=== PATIENT | male | born 1935 | race Caucasian/White ===

== ENCOUNTER 2018-06-14 15:53 | Inpatient (IN) | payer MEDICARE, BC ==
[~2018-06-14] VITALS: Ht 170.2 cm; Wt 66.2 kg
--- NOTE | 2018-06-14 16:01 | NUR ---
PT BIBPA FROM [facility]; ELEVATED TEMP OF 100.1 @1400, TYLENOL GIVEN, PT IS AAOX0, NOT IN RESPIRATORY DISTRESS, V/S STABLE, KEPT RESTED AND COMFORTABLE. WILL CONTINUE TO MONITOR.
--- NOTE | 2018-06-14 16:10 | NUR ---
LABS DRAWNED AND SENT TO LAB.
--- NOTE | 2018-06-14 16:22 | NUR ---
SEEN AND EXAMINED BY DR. ESPARZA.
[2018-06-14] MEDS ORDERED: ACETAMINOPHEN 650 MG/SUPP.RECT RC ONE (16:30)
[2018-06-14] MEDS ORDERED: ALBUTEROL FS 2.5 MG/3 ML VIAL.NEB CONTNEB ONE (16:30)
[2018-06-14] MEDS ORDERED: CEFEPIME 1 GM in IV D5W 50 ML IV ONE (16:30)
[2018-06-14] MEDS ORDERED: IV NS 0.9% 1,000 ML BAG IV ONE (16:30)
--- NOTE | 2018-06-14 16:31 | NUR ---
RADIOLOGY AT BEDSIDE FOR XRAY.
[2018-06-14 16:36] LABS: BASOPHILS # (AUTO) 0.1 /CMM (0.0-0.2); BASOPHILS % (AUTO) 0.5 % (0.0-2.0); EOSINOPHILS % (AUTO) 0.4 % (0.0-6.0); HEMATOCRIT 33 % (39-51); HEMOGLOBIN 10.8 g/dL (13.5-17.5); LYMPHOCYTES # (AUTO) 1.2 /CMM (0.8-4.8); LYMPHOCYTES % (AUTO) 10.3 % (20.0-44.0); MEAN CORPUSCULAR HGB CONC 33 g/dl (31.0-36.0); MEAN CORPUSCULAR VOLUME 102 fL (80-96); MONOCYTES # (AUTO) 0.5 /CMM (0.1-1.30); MONOCYTES % (AUTO) 4.5 % (2.0-12.0); NEUTROPHILS # (AUTO) 10.1 /CMM (1.8-8.9); NEUTROPHILS % (AUTO) 84.3 % (43.0-81.0); PLATELET COUNT (AUTO) 193 /CMM (150-450); RED BLOOD CELL COUNT(AUTO) 3.26 MIL/uL (4.5-6.0)
[2018-06-14] MEDS ORDERED: ALBUTEROL FS 2.5 MG/3 ML VIAL.NEB ONE (16:38)
--- NOTE | 2018-06-14 16:45 | NUR ---
RT AT BEDSIDE FOR BREATHING TREATMENT AND SUCTIONING.
[2018-06-14 17:00] LABS: CALCIUM, SERUM 9.3 mg/dL (8.5-10.1); CARBON DIOXIDE 30 mmol/L (21-32); CHLORIDE 98 mmol/L (98-107); GLUCOSE 120 mg/dL (74-106); POTASSIUM 4.1 mmol/L (3.5-5.1); SODIUM SERUM 137 mmol/L (136-145); UREA NITROGEN, BLOOD 59 mg/dL (7-18)
--- NOTE | 2018-06-14 17:02 | NUR ---
URINE SPECIMEN COLLECTED AND SENT TO LAB.
[2018-06-14 17:05] LABS: APPEARANCE,URINE Slightly Cloudy (CLEAR); BILIRUBIN,URINE Negative (NEGATIVE); BLOOD, URINE Large Ery/uL (NEGATIVE); COLOR,URINE Yellow (YELLOW); KETONES,URINE Trace (NEGATIVE); LEUKOCYTE ESTERASE ,URINE Small (NEGATIVE); NITRITE, URINE Negative (NEGATIVE); PROTEIN,URINE 30 mg/dl (NEGATIVE); UGLUCOSE Negative (NEGATIVE); UROBILINOGEN,URINE 0.2 EU/dL (0.2)
--- NOTE | 2018-06-14 17:07 | NUR ---
PAGED CUSTOMER RELATIONS COORDINATOR DR. DINERO FOR PANEL. AWAITING TO CALL BACK
[2018-06-14 17:12] LABS: ALANINE AMINOTRANSFERASE 14 U/L (12-78); ALBUMIN 2.7 g/dL (3.4-5.0); ALKALINE PHOSPHATASE 105 U/L (46-116); ASPARTATE AMINOTRANSFERASE 37 U/L (15-37); B-TYPE NATRIURETIC PEPTIDE 4872 PG/ML (0-125); BILIRUBIN,DIRECT 0.1 mg/dL (0.0-0.2); BILIRUBIN,TOTAL 0.3 mg/dL (0.2-1.0); TOTAL PROTEIN, SERUM 6.2 g/dL (6.4-8.2)
[2018-06-14 17:22] LABS: BACTERIA,URINE 1+ /HPF (None Seen); RBC,URINE TOO NUMEROUS TO COUN /HPF (0-2); SQUAMOUS EPITHELIAL CELL,UR Few /HPF (None Seen)
[2018-06-14] MEDS ORDERED: BISA10SU61 RC (17:51)
[2018-06-14] MEDS ORDERED: CRAN3875 GT (17:51)
[2018-06-14] MEDS ORDERED: ASPI-1169 GT (17:51)
[2018-06-14] MEDS ORDERED: CLOP75TA15 GT (17:51)
[2018-06-14] MEDS ORDERED: ASCO500T9 GT (17:51)
[2018-06-14] MEDS ORDERED: VITA400C68 GT (17:51)
[2018-06-14] MEDS ORDERED: IPRA3AMP23 IH (17:51)
[2018-06-14] MEDS ORDERED: ACET325T53 GT ×2 (17:51)
[2018-06-14] MEDS ORDERED: MIDO10TA GT (17:51)
[2018-06-14] MEDS ORDERED: MODA100T14 GT (17:51)
[2018-06-14] MEDS ORDERED: VITA1CAP GT (17:51)
[2018-06-14] MEDS ORDERED: LEVO50TA8 GT (17:51)
[2018-06-14] MEDS ORDERED: FOLI0.8T GT (17:51)
[2018-06-14] MEDS ORDERED: HEPA50008 SQ (17:51)
[2018-06-14] MEDS ORDERED: CRAN425C6 GT (17:51)
[2018-06-14] MEDS ORDERED: ATOR80TA GT (17:51)
[2018-06-14] MEDS ORDERED: NITR0.4T48 SL (17:51)
[2018-06-14] MEDS ORDERED: LACT-96 GT (17:51)
[2018-06-14] MEDS ORDERED: ZINC220T GT (17:51)
[2018-06-14] MEDS ORDERED: AMIN30LI27 GT (17:51)
[2018-06-14] MEDS ORDERED: FERR325T23 GT (17:51)
[2018-06-14] MEDS ORDERED: MAGN400O6 GT (17:51)
[2018-06-14] MEDS ORDERED: CARB-93 GT (17:51)
[2018-06-14] MEDS ORDERED: LANS30CA54 GT (17:51)
[2018-06-14] MEDS ORDERED: ARGI1POW13 GT (17:51)
[2018-06-14] MEDS ORDERED: POLY17PO4 GT (17:51)
[2018-06-14] MEDS ORDERED: ONDA4TAB5 GT (17:51)
[2018-06-14] MEDS ORDERED: LACT1CAP7 GT (17:51)
[2018-06-14] MEDS ORDERED: GUAI5SYR GT (17:51)
[2018-06-14] MEDS ORDERED: MULT-213 GT (17:51)
[2018-06-14] MEDS ORDERED: BUME1TAB4 GT (17:51)
[2018-06-14] MEDS ORDERED: VITA400C19 GT (17:52)
--- NOTE | 2018-06-14 18:00 | NUR ---
302-1 TELE; ADMITTING DX SOB
--- NOTE | 2018-06-14 18:23 | NUR ---
REPORT GIVEN TO JACLYN BLOCK FOR PRINCE.
[2018-06-14 19:00] VITALS: BP 116/63
--- NOTE | 2018-06-14 19:15 | NUR ---
BAND SCROLL SAW OPERATORTERMITE TREATER HELPER NOTES RECEIVED REPORT FROM PRANAV,PATIENT CAME AT AROUND 1855 VIA GURNEY VIA ACLS PROTOCOL FROM ER,ACCOMPANIED BY SON.PATIENT CAME FROM [facility],A/O X2,APPEARS SLEEPY,OPEN EYES TO NAME,WITH KNOWN HX OF DEMENTIA,HTN,PARKINSONS,HYPOTHYROIDISM..C/O INCREASE TEMPERATURE 100.1 IN THE FACILITY.WITH MCNAMARA CATH IN PLACE DRAINING YELLOWISH OUTPUT.WITH SALINE LOCK LEFT WIRST G18 INTACT AND PATENT.NEW SALINE LOCK PLACE ON RIGHT FOREARM PER PHARMACY REQUEST FOR MEDS.NOTED SACRAL REDNESS,OPEN WOUND ON LEFT FOOT 1.5X1.4 CM,RIGHT LOWER LEG 2X1.5 CM.RIGHT FOOT 1.5X1CM,PHOT TAKEN ON CHART.
[2018-06-14 20:00] VITALS: BP 116/63
[2018-06-14] MEDS ORDERED: IPRATROPIUM NEB FS 0.5 MG/2.5 ML AMPUL.NEB NEB PRN ×2 (20:30→21:30)
[2018-06-14] MEDS ORDERED: ALBUTEROL FS 2.5 MG/3 ML VIAL.NEB NEB PRN (20:30)
[2018-06-14] MEDS ORDERED: FEE PK DOSING 1 MIN EA MC ONE (20:39)
[2018-06-14] MEDS ORDERED: [UNRECOGNIZED DRUG - OTHER] GT SCH (21:00)
[2018-06-14] MEDS ORDERED: BISACODYL SUPP (10 MG) 10 MG/SUPP.RECT SUPP.RECT RC PRN (21:00)
[2018-06-14] MEDS ORDERED: NITROGLYCERIN 0.4 MG/TAB BOTTLE SL PRN (21:00)
[2018-06-14] MEDS ORDERED: JEVITY 1.2 CAL 1,000 ML BOTTLE GT PRN (21:00)
[2018-06-14] MEDS ORDERED: LACTOSE REDUCED FOOD GT SCH (21:00)
[2018-06-14] MEDS: FUROSEMIDE 40 MG/4 ML VIAL IV SCH (21:00)
[2018-06-14] MEDS ORDERED: GUAIFENESIN/D-METHORPHAN HB 5 ML UDC GT PRN (21:00)
[2018-06-14] MEDS ORDERED: PIPERACILLIN /TAZOBACTAM 3.375 G in IV D5W 100 ML IV SCH (21:00)
[2018-06-14] MEDS ORDERED: ACETAMINOPHEN 650 MG/20.3 ML UDC GT PRN (21:00)
[2018-06-14] MEDS ORDERED: FIBER GT SCH (21:00)
[2018-06-14] MEDS ORDERED: MAGNESIUM HYDROXIDE 30 ML UDC GT PRN (21:00)
--- NOTE | 2018-06-14 21:00 | NUR ---
ROUTER MACHINE OPERATOR NOTES STARTED ON LASIX 40MG IV FOR CHF ORDERED.
--- NOTE | 2018-06-14 21:00 | NUR ---
CRM ADMINISTRATOR NOTES STARTED ON VANCOMYCIN 1GM IV FOR SEPSIS ORDERED.
[2018-06-14] MEDS: CARBIDOPA/LEVODOPA 25/100 MG 1 UDTAB GT SCH (21:07)
[2018-06-14] MEDS: VANCOMYCIN 1 GM in IV D5W 250 ML IV SCH (21:17)
[2018-06-14] MEDS ORDERED: ONDANSETRON 4 MG TAB.RAPDIS GT PRN (21:30)
[2018-06-14] MEDS: MIDODRINE HCL (5MG) 5 MG TABLET GT SCH (21:38)
[2018-06-14] MEDS ORDERED: PIPERACILLIN /TAZOBACTAM 3.375 G in IV D5W 50 ML IV ONE (22:00)
[2018-06-14] MEDS ORDERED: ATORVASTATIN 40 MG TABLET GT SCH (22:00)
--- NOTE | 2018-06-14 22:00 | NUR ---
COMPLETION SUPERVISOR NOTES STARTED ON ZOSYN 3.375GM IVPB ORDERED.
--- NOTE | 2018-06-14 22:00 | NUR ---
MEDICAL SURGICAL TECH NOTES SR-80 ON TELE MONITOR.DUE MEDS GIVEN VIA GT.WILL START ON JEVITY FEEDING ORDERED.
[2018-06-15] VITALS: BP 110/52
[2018-06-15] MEDS: IPRATROPIUM NEB FS 0.5 MG/2.5 ML AMPUL.NEB NEB SCH ×7 (00:12→23:17)
[2018-06-15] MEDS ORDERED: ALBUTEROL FS 2.5 MG/3 ML VIAL.NEB NEB PRN (01:30)
--- NOTE | 2018-06-15 02:00 | NUR ---
HATCHERY HELPER NOTES STARTED ON JEVITY FEEDING/GT AT 65ML/HR RATE X 20 HOURS(1300ML),ON 0200,OFF 2200.
[2018-06-15] MEDS: ALBUTEROL FS 2.5 MG/3 ML VIAL.NEB NEB SCH ×6 (04:21→23:17)
[2018-06-15] MEDS: PIPERACILLIN /TAZOBACTAM 3.375 G in IV D5W 100 ML IV SCH ×3 (04:55→21:00)
[2018-06-15] MEDS: MIDODRINE HCL (5MG) 5 MG TABLET GT SCH ×3 (05:00→20:59)
[2018-06-15 06:23] LABS: BASOPHILS % (AUTO) 0.4 % (0.0-2.0); EOSINOPHILS % (AUTO) 0.5 % (0.0-6.0); HEMATOCRIT 32 % (39-51); HEMOGLOBIN 10.7 g/dL (13.5-17.5); LYMPHOCYTES # (AUTO) 0.4 /CMM (0.8-4.8); LYMPHOCYTES % (AUTO) 3.8 % (20.0-44.0); MEAN CORPUSCULAR HGB CONC 33 g/dl (31.0-36.0); MEAN CORPUSCULAR VOLUME 102 fL (80-96); MONOCYTES # (AUTO) 0.1 /CMM (0.1-1.30); MONOCYTES % (AUTO) 1.2 % (2.0-12.0); NEUTROPHILS # (AUTO) 10.9 /CMM (1.8-8.9); NEUTROPHILS % (AUTO) 94.1 % (43.0-81.0); PLATELET COUNT (AUTO) 177 /CMM (150-450); RED BLOOD CELL COUNT(AUTO) 3.16 MIL/uL (4.5-6.0); WHITE BLOOD COUNT (AUTO) 11.6 K/uL (4.3-11.0)
[2018-06-15 06:43] LABS: ALANINE AMINOTRANSFERASE 15 U/L (12-78); ALBUMIN 2.4 g/dL (3.4-5.0); ALKALINE PHOSPHATASE 92 U/L (46-116); ASPARTATE AMINOTRANSFERASE 36 U/L (15-37); BILIRUBIN,TOTAL 0.4 mg/dL (0.2-1.0); CALCIUM, SERUM 8.7 mg/dL (8.5-10.1); CARBON DIOXIDE 30 mmol/L (21-32); CHLORIDE 99 mmol/L (98-107); CREATININE 0.9 mg/dL (0.6-1.3); GLUCOSE 133 mg/dL (74-106); MAGNESIUM 2.4 mg/dL (1.8-2.4); PHOSPHORUS 4.9 mg/dL (2.5-4.9); POTASSIUM 3.7 mmol/L (3.5-5.1); SODIUM SERUM 138 mmol/L (136-145); TOTAL PROTEIN, SERUM 5.7 g/dL (6.4-8.2); UREA NITROGEN, BLOOD 47 mg/dL (7-18)
--- NOTE | 2018-06-15 06:47 | NUR ---
MANAGER RAIL NOTES ON BED MORE AROUSABLE TO VERBAL STIMULI,GT FEEDING TOLERATED WELL,NO N/V D NOTED,NO RESIDUAL NOTED.REPOSITION PER PROTOCOL.IV ABX TOLERATED WELL.IN NO ACUTE DISTRESS.WILL ENDORSE TO DAY NURSE FOR PRINCE.
--- NOTE | 2018-06-15 07:15 | NUR ---
FURNACE MASON OPENING NOTES RECEIVED PATIENT AWAKE IN BED IN NO ACUTE SIGNS OF DISTRESS. HOB ELEVATED. A/O X1. APPEARS COMFORTABLE WITH NO SIGNS OF GRIMACING OR MOANING NOTED AT THIS TIME. ON 02 VIA N/C @ 3LPM, TOLERATING WELL WITH NO SOB NOTED. TELEMONITORING SHOWS SR WITH HR ON THE 80'S. PT WITH PIV'S ON RFA #20 AND LEFT WRIST #18, IV ABT ZOSYN CURRENTLY INFUSING @25ML/HR. G-TUBE IN PLACE WITH FEEDING OF JEVITY 1.2 @ 65ML/HR IN PROGRESS, TOLERATING WELL. ASPIRATION PRECAUTIONS MAINTAINED. PT WITH MCNAMARA CATH IN PLACE, DRAINING CLEAR YELLOW URINE TO BEDSIDE URINARY BAG. SAFETY MEASURES IN PLACE. BED IN LOWEST LOCKED POSITION WITH SR UP X3. CALL LIGHT IN REACH. WILL CONTINUE TO MONITOR ACCORDINGLY.
[2018-06-15 08:00] VITALS: BP 101/53
[2018-06-15] MEDS: ZINC SULFATE 220 MG CAPSULE GT SCH (08:24)
[2018-06-15] MEDS: FERROUS SULFATE (325 MG) 325 MG/TAB TABLET GT SCH (08:24)
[2018-06-15] MEDS: CLOPIDOGREL BISULFATE 75 MG TABLET GT SCH (08:24)
[2018-06-15] MEDS: POLYETHYLENE GLYCOL 3350 17 GM POWD.PACK GT SCH (08:24)
[2018-06-15] MEDS: PANTOPRAZOLE 40 MG/PACK PACK GT SCH (08:24)
[2018-06-15] MEDS: FOLIC ACID 1 MG TABLET GT SCH (08:24)
[2018-06-15] MEDS: FUROSEMIDE 40 MG/4 ML VIAL IV SCH (08:25)
[2018-06-15] MEDS: ASPIRIN 81 MG TAB.CHEW GT SCH (08:25)
[2018-06-15] MEDS: CARBIDOPA/LEVODOPA 25/100 MG 1 UDTAB GT SCH ×4 (08:25→20:59)
[2018-06-15] MEDS: VITAMIN B COMP W-C 1 TAB TABLET GT SCH (08:25)
[2018-06-15] MEDS: ASCORBIC ACID 500 MG TABLET GT SCH (08:25)
[2018-06-15] MEDS: LEVOTHYROXINE SODIUM 50 MCG TABLET GT SCH (08:25)
[2018-06-15] MEDS: LACTOBACILLUS RHAMNOSUS GG 1 EACH CAP.SPRINK GT SCH (08:25)
[2018-06-15] MEDS: MODAFINIL 100 MG TABLET GT SCH (08:25)
[2018-06-15] MEDS: BUMETANIDE (1 MG) 1 MG TABLET GT SCH ×2 (08:25→17:48)
[2018-06-15] MEDS: MULTIVIT W/MINERALS 1 TAB TABLET GT SCH (08:25)
[2018-06-15] MEDS: HEPARIN SODIUM, PORCINE 5000 UNITS/1 ML VIAL SQ SCH ×2 (08:28→17:51)
[2018-06-15] MEDS: ACETAMINOPHEN 650 MG/20.3 ML UDC GT SCH (08:36)
[2018-06-15] MEDS: PROSOURCE / PROSTAT (PYXIS) 30 ML UDC GT SCH (08:36)
[2018-06-15] MEDS: VANCOMYCIN 1 GM in IV D5W 250 ML IV SCH ×2 (08:37→21:00)
[2018-06-15] MEDS: VITAMIN E 400 UNIT CAPSULE GT SCH (09:00)
[2018-06-15] MEDS: IV NS 0.9% 1,000 ML IV PRN (10:29)
[2018-06-15 10:48] LABS: THYROID STIMULATING HORMONE 6.047 uIU/mL (0.358-3.74)
[2018-06-15] MEDS: Z GUARD REMEDY 2 OZ OINT TP SCH ×2 (15:00→21:01)
[2018-06-15 16:00] VITALS: BP 115/62
[2018-06-15] MEDS: VITAMINS A AND D 56.7 GM TUBE TP SCH (16:23)
--- NOTE | 2018-06-15 19:26 | NUR ---
MS RN CLOSING NOTES PATIENT COMFORTABLY LYING AT MODERATE HIGH BACKREST IN BED. A/O X1. PT ASLEEP MOST OF TIME DURING THE DAY WITH NO ACUTE DISTRESS NOTED. ON 02 VIA N/C @ 3LPM, TOLERATING WELL WITH NO SOB NOTED. PT WITH PIV'S ON RFA #20 AND LEFT WRIST #18, IVF OF NS @100ML/HR INFUSING WELL. G-TUBE IN PLACE WITH FEEDING OF JEVITY 1.2 @ 65ML/HR IN PROGRESS, TOLERATING WELL. ASPIRATION PRECAUTIONS MAINTAINED. PT WITH MCNAMARA CATH IN PLACE, DRAINING CLEAR YELLOW URINE TO BEDSIDE URINARY BAG., MCNAMARA CARE DONE. PT KEPT CLEAN AND DRY. TURNED AND REPOSITIONED Q 2HRS AND PRN. ALL NEEDS AND CARE PROVIDED WELL. SAFETY MEASURES IN PLACE. BED IN LOWEST LOCKED POSITION WITH SR UP X3. CALL LIGHT IN REACH. ENDORSED TO RELATIONS MGR NURSE FOR PRINCE.
--- NOTE | 2018-06-15 19:30 | NUR ---
MS RN NOTES RECEIVED LAYING COMFORTABLY ON BED,BREATHING NON LABORED.O2 IN USED AT 2L/NC TO KEEP O2 SAT ABOVE 90%.WITH IVF NS AT 100ML/HR RATE INFUSING VIA IV PUMP ON RIGHT FOREARM,SITE PATENT.WITH SECOND SALINE LOCK ON LEFT WRIST #18.JEVITY FEEDING IN PROGRESS VIA GT,TOLERATED WELL,NO RESIDUAL VOLUME NOTED.HOB ELEVATED FOR ASPIRATION PRECAUTION.ON KCI MATTRESS FOR SKIN MANAGEMENT.REPOSITION PER PROTOCOL,CALL LIGHT IN REACH,WILL CONTINUE TO MONITOR STATUS.
[2018-06-15 20:00] VITALS: BP 99/57
--- NOTE | 2018-06-15 20:30 | NUR ---
MS RN NOTES SON GUS BESIDE
--- NOTE | 2018-06-15 21:00 | NUR ---
MS RN NOTES DUE IV ABX HUNG,INFUSING AT THIS TIME.REPOSITION PER PROTOCOL
[2018-06-15] MEDS: JEVITY 1.2 CAL 1,000 ML BOTTLE GT PRN (21:05)
[2018-06-16] MEDS: IPRATROPIUM NEB FS 0.5 MG/2.5 ML AMPUL.NEB NEB SCH ×6 (03:28→23:28)
[2018-06-16] MEDS: ALBUTEROL FS 2.5 MG/3 ML VIAL.NEB NEB SCH ×6 (03:29→23:27)
[2018-06-16] MEDS: PIPERACILLIN /TAZOBACTAM 3.375 G in IV D5W 100 ML IV SCH ×3 (05:00→20:31)
[2018-06-16] MEDS: IV NS 0.9% 1,000 ML IV PRN (05:00)
[2018-06-16] MEDS: MIDODRINE HCL (5MG) 5 MG TABLET GT SCH ×3 (05:02→21:08)
--- NOTE | 2018-06-16 06:40 | NUR ---
MS RN NOTES ON BED A/O X 1,OPEN EYES TO NAME,GT FEEDING TOLERATED WELL,NO N/V/D NOTED,MCNAMARA CATH DRAINED CHERYL COLORED URINE.MEPILEX TO BILATERAL FOOT CHANGED.REPOSITIONED PER PROTOCOL,IN NO ACUTE DISTRESS.WILL ENDORSE TO DAY NURSE FOR PRINCE.
--- NOTE | 2018-06-16 07:15 | NUR ---
MS RN OPENING NOTES RECEIVED PATIENT ASLEEP IN BED IN NO ACUTE SIGNS OF DISTRESS. HOB ELEVATED. A/O X1. APPEARS COMFORTABLE WITH NO SIGNS OF GRIMACING OR MOANING NOTED AT THIS TIME. ON 02 VIA N/C @ 2LPM, TOLERATING WELL WITH NO SOB NOTED. PT WITH PIV'S ON RFA #20 AND LEFT WRIST #18, IV ABT ZOSYN CURRENTLY INFUSING @25ML/HR. G-TUBE IN PLACE WITH FEEDING OF JEVITY 1.2 @ 65ML/HR CONTINUOUSLY, NO GASTRIC RESIDUAL NOTED, TOLERATING WELL. ASPIRATION PRECAUTIONS MAINTAINED. PT WITH MCNAMARA CATH IN PLACE, DRAINING CLEAR YELLOW URINE TO BEDSIDE URINARY BAG. SAFETY MEASURES IN PLACE. BED IN LOWEST LOCKED POSITION WITH SR UP X3. CALL LIGHT IN REACH. WILL CONTINUE TO MONITOR ACCORDINGLY.
--- NOTE | 2018-06-16 07:43 | NUR ---
WOUND CARE CONSULT WOUND CARE RECEIVED CONSULT FOR LOWER EXTREMITIES WOUND. WOUND CARE WILL DEFER TO PLASTIC SURGICAL TEAM WHO ARE CURRENTLY FOLLOWING THIS PATIENT. PATIENT WITH HIRA AT 11, ALL PRESSURE ULCER PREVENTION MEASURES ARE NOTED TO BE IN PLACE. WILL SEE PRN.
[2018-06-16 08:00] VITALS: BP 111/58
[2018-06-16 08:40] LABS: BASOPHILS # (AUTO) 0.1 /CMM (0.0-0.2); BASOPHILS % (AUTO) 0.9 % (0.0-2.0); EOSINOPHILS % (AUTO) 1.1 % (0.0-6.0); HEMATOCRIT 31 % (39-51); HEMOGLOBIN 10.2 g/dL (13.5-17.5); LYMPHOCYTES # (AUTO) 0.5 /CMM (0.8-4.8); LYMPHOCYTES % (AUTO) 5.5 % (20.0-44.0); MEAN CORPUSCULAR HGB CONC 33 g/dl (31.0-36.0); MEAN CORPUSCULAR VOLUME 103 fL (80-96); MONOCYTES # (AUTO) 0.2 /CMM (0.1-1.30); MONOCYTES % (AUTO) 2.1 % (2.0-12.0); NEUTROPHILS # (AUTO) 7.8 /CMM (1.8-8.9); NEUTROPHILS % (AUTO) 90.4 % (43.0-81.0); PLATELET COUNT (AUTO) 156 /CMM (150-450); RED BLOOD CELL COUNT(AUTO) 3.02 MIL/uL (4.5-6.0); WHITE BLOOD COUNT (AUTO) 8.6 K/uL (4.3-11.0)
[2018-06-16 08:49] LABS: ALANINE AMINOTRANSFERASE 29 U/L (12-78); ALBUMIN 2.2 g/dL (3.4-5.0); ALKALINE PHOSPHATASE 100 U/L (46-116); ASPARTATE AMINOTRANSFERASE 39 U/L (15-37); BILIRUBIN,TOTAL 0.3 mg/dL (0.2-1.0); CALCIUM, SERUM 8.6 mg/dL (8.5-10.1); CARBON DIOXIDE 33 mmol/L (21-32); CHLORIDE 100 mmol/L (98-107); CREATININE 0.9 mg/dL (0.6-1.3); GLUCOSE 142 mg/dL (74-106); MAGNESIUM 2.3 mg/dL (1.8-2.4); PHOSPHORUS 3.9 mg/dL (2.5-4.9); POTASSIUM 3.4 mmol/L (3.5-5.1); SODIUM SERUM 140 mmol/L (136-145); TOTAL PROTEIN, SERUM 5.3 g/dL (6.4-8.2); UREA NITROGEN, BLOOD 38 mg/dL (7-18)
[2018-06-16] MEDS: VANCOMYCIN 1 GM in IV D5W 250 ML IV SCH (09:00)
[2018-06-16] MEDS: FOLIC ACID 1 MG TABLET GT SCH (09:52)
[2018-06-16] MEDS: CLOPIDOGREL BISULFATE 75 MG TABLET GT SCH (09:52)
[2018-06-16] MEDS: VITAMIN E 400 UNIT CAPSULE GT SCH (09:52)
[2018-06-16] MEDS: ASCORBIC ACID 500 MG TABLET GT SCH (09:53)
[2018-06-16] MEDS: MODAFINIL 100 MG TABLET GT SCH (09:53)
[2018-06-16] MEDS: VITAMIN B COMP W-C 1 TAB TABLET GT SCH (09:53)
[2018-06-16] MEDS: LACTOBACILLUS RHAMNOSUS GG 1 EACH CAP.SPRINK GT SCH (09:53)
[2018-06-16] MEDS: ASPIRIN 81 MG TAB.CHEW GT SCH (09:53)
[2018-06-16] MEDS: CARBIDOPA/LEVODOPA 25/100 MG 1 UDTAB GT SCH ×4 (09:53→20:27)
[2018-06-16] MEDS: MULTIVIT W/MINERALS 1 TAB TABLET GT SCH (09:53)
[2018-06-16] MEDS: BUMETANIDE (1 MG) 1 MG TABLET GT SCH ×2 (09:53→16:45)
[2018-06-16] MEDS: FERROUS SULFATE (325 MG) 325 MG/TAB TABLET GT SCH (09:54)
[2018-06-16] MEDS: ZINC SULFATE 220 MG CAPSULE GT SCH (09:54)
[2018-06-16] MEDS: PANTOPRAZOLE 40 MG/PACK PACK GT SCH (09:54)
[2018-06-16] MEDS: ACETAMINOPHEN 650 MG/20.3 ML UDC GT SCH (09:54)
[2018-06-16] MEDS: LEVOTHYROXINE SODIUM 50 MCG TABLET GT SCH (09:54)
[2018-06-16] MEDS: HEPARIN SODIUM, PORCINE 5000 UNITS/1 ML VIAL SQ SCH ×2 (09:55→16:46)
[2018-06-16] MEDS: POLYETHYLENE GLYCOL 3350 17 GM POWD.PACK GT SCH (09:55)
[2018-06-16] MEDS: Z GUARD REMEDY 2 OZ OINT TP SCH ×2 (09:55→20:34)
[2018-06-16] MEDS: VITAMINS A AND D 56.7 GM TUBE TP SCH (09:56)
[2018-06-16] MEDS: PROSOURCE / PROSTAT (PYXIS) 30 ML UDC GT SCH (09:56)
[2018-06-16] MEDS ORDERED: POTASSIUM CHLORIDE 20 MEQ POWDER PACKET GT SCH (11:30)
[2018-06-16] MEDS: JEVITY 1.2 CAL 1,000 ML BOTTLE GT PRN (12:21)
[2018-06-16 16:00] VITALS: BP 107/56
[2018-06-16] MEDS ORDERED: VANCOMYCIN 1 GM in IV D5W 250 ML IV SCH (18:00)
--- NOTE | 2018-06-16 18:34 | NUR ---
MS RN CLOSING NOTES PATIENT IN BED, IN NO SIGNS OF ANY DISTRESS. HOB ELEVATED. A/O X1. APPEARS COMFORTABLE WITH NO SIGNS OF GRIMACING OR MOANING NOTED AT THIS TIME. ON OXYGEN VIA N/C @ 2LPM; TOLERATING WELL WITH NO SOB NOTED. BREATHING TREATMENTS GIVEN BY RT ORDERED. PT WITH PIV'S ON RFA #20 AND LEFT WRIST #18, IV ABT ZOSYN GIVEN ORDERED. SKIPPED DOSE OF VANCO THIS MORNING AT 0900 D/T TO 26 VANCO THROUGH. NEW ORDER FOR VANCO DOSAGE AND THROUGH NOTED WELL. G-TUBE IN PLACE WITH FEEDING OF JEVITY 1.2 @ 65ML/HR CONTINUOUSLY, NO GASTRIC RESIDUAL NOTED, TOLERATING WELL. ASPIRATION PRECAUTIONS MAINTAINED. PT WITH MCNAMARA CATH IN PLACE, DRAINING CLEAR YELLOW URINE TO BEDSIDE URINARY BAG WITH 600ML OUTPUT. SAFETY MEASURES IN PLACE. BED IN LOWEST LOCKED POSITION WITH SR UP X3. CALL LIGHT IN REACH. WILL ENDORSE TO END MATCHER NURSE FOR PRINCE.
--- NOTE | 2018-06-16 19:15 | NUR ---
MS RN NOTE RECEIVED PT IN STABLE CONDITION: A&O X1, NO SIGNS OF SOB OR DISTRESS. PT. HAS JTUBE PATENT AND INTACT WITH ADEQUATE RESIDUAL WITH FEEDING INFUSING AND TOLERATING WELL. MCNAMARA CATH. PATENT WITH ADEQUATE URINE DRAINING. SAFETY MEASURES IN PLACE: BED LOW, LOCKED, HOB ELEVATED, UPPER RAILS UP, AND CALL LIGHT WITHIN REACH. WILL CONT. TO MONITOR.
[2018-06-16 20:00] VITALS: BP 96/51
[2018-06-17] MEDS: ALBUTEROL FS 2.5 MG/3 ML VIAL.NEB NEB SCH ×6 (03:27→23:53)
[2018-06-17] MEDS: IPRATROPIUM NEB FS 0.5 MG/2.5 ML AMPUL.NEB NEB SCH ×6 (03:27→23:53)
[2018-06-17] MEDS: PIPERACILLIN /TAZOBACTAM 3.375 G in IV D5W 100 ML IV SCH ×3 (04:25→20:29)
[2018-06-17] MEDS: MIDODRINE HCL (5MG) 5 MG TABLET GT SCH ×3 (05:10→20:29)
--- NOTE | 2018-06-17 06:37 | NUR ---
MS RN NOTE PT IN STABLE CONDITION: A&O X1, NO SIGNS OF SOB OR DISTRESS. PT. HAS JTUBE PATENT AND INTACT WITH ADEQUATE RESIDUAL WITH JEVITY 1.2 @65 ML/HR INFUSING AND TOLERATING WELL. MCNAMARA CATH. PATENT WITH OUTPUT OF 700 ML. ALL NEEDS ATTENDED TO. SAFETY MEASURES IN PLACE: BED LOW, LOCKED, HOB ELEVATED, UPPER RAILS UP, AND CALL LIGHT WITHIN REACH. WILL CONT. TO MONITOR AND ENDORSE TO NEXT SHIFT FOR PRINCE.
[2018-06-17 06:42] LABS: BASOPHILS # (AUTO) 0.1 /CMM (0.0-0.2); BASOPHILS % (AUTO) 1.2 % (0.0-2.0); EOSINOPHILS % (AUTO) 1.4 % (0.0-6.0); HEMATOCRIT 31 % (39-51); LYMPHOCYTES # (AUTO) 0.8 /CMM (0.8-4.8); MEAN CORPUSCULAR HGB CONC 33 g/dl (31.0-36.0); MEAN CORPUSCULAR VOLUME 104 fL (80-96); MONOCYTES # (AUTO) 0.3 /CMM (0.1-1.30); MONOCYTES % (AUTO) 3.1 % (2.0-12.0); NEUTROPHILS # (AUTO) 7.8 /CMM (1.8-8.9); NEUTROPHILS % (AUTO) 85.3 % (43.0-81.0); RED BLOOD CELL COUNT(AUTO) 2.93 MIL/uL (4.5-6.0); WHITE BLOOD COUNT (AUTO) 9.1 K/uL (4.3-11.0)
--- NOTE | 2018-06-17 07:15 | NUR ---
MS/RN OPENING NOTE RECEIVED THE PATIENT SLEEPING IN BED. ALERT AND ORIENTED X1, OPEN EYES TO NAME. RESPIRATION REGULAR AND UNLABORED. RECEIVING OXYGEN AT 2L/MIN VIA NASAL CANNULA. PATIENT IN NO APPARENT DISTRESS. MCNAMARA CATH DRAINING CLEAR, YELLOW COLOR URINE. JT FEEDING JEVITY 1.2 INFUSING AT 65ML/HR. HEAD OF THE BED ELEVATED. RFA G 20 PATENT AND SALINE LOCKED. LEFT WRIST G 18 PATENT AND NORMAL SALINE INFUSING AT 100ML/HR. NO S/S INFILTRATION NOTED. BED LOW AND LOCKED. SIDE RAILS UP X3. CALL LIGHT WITHIN REACH. WILL CONTINUE TO MONITOR.
[2018-06-17 07:50] LABS: PLATELET COUNT (AUTO) 172 /CMM (150-450)
[2018-06-17 08:00] VITALS: BP 111/50
[2018-06-17] MEDS ORDERED: PIPE3.379 IV (08:29)
[2018-06-17] MEDS ORDERED: BUME1TAB5 GT (08:29)
[2018-06-17] MEDS ORDERED: RXVAN XX (08:29)
[2018-06-17] MEDS ORDERED: ALBUT2 CONTNEB (08:29)
[2018-06-17] MEDS: ASCORBIC ACID 500 MG TABLET GT SCH (08:34)
[2018-06-17] MEDS: ASPIRIN 81 MG TAB.CHEW GT SCH (08:34)
[2018-06-17] MEDS: CLOPIDOGREL BISULFATE 75 MG TABLET GT SCH (08:34)
[2018-06-17] MEDS: LEVOTHYROXINE SODIUM 50 MCG TABLET GT SCH (08:34)
[2018-06-17] MEDS: MULTIVIT W/MINERALS 1 TAB TABLET GT SCH (08:34)
[2018-06-17] MEDS: POLYETHYLENE GLYCOL 3350 17 GM POWD.PACK GT SCH (08:34)
[2018-06-17] MEDS: PANTOPRAZOLE 40 MG/PACK PACK GT SCH (08:34)
[2018-06-17] MEDS: CARBIDOPA/LEVODOPA 25/100 MG 1 UDTAB GT SCH ×4 (08:34→20:27)
[2018-06-17] MEDS: VITAMIN B COMP W-C 1 TAB TABLET GT SCH (08:34)
[2018-06-17] MEDS: FERROUS SULFATE (325 MG) 325 MG/TAB TABLET GT SCH (08:34)
[2018-06-17] MEDS: LACTOBACILLUS RHAMNOSUS GG 1 EACH CAP.SPRINK GT SCH (08:35)
[2018-06-17] MEDS: VITAMIN E 400 UNIT CAPSULE GT SCH (08:35)
[2018-06-17] MEDS: FOLIC ACID 1 MG TABLET GT SCH (08:35)
[2018-06-17] MEDS: MODAFINIL 100 MG TABLET GT SCH (08:36)
[2018-06-17] MEDS: HEPARIN SODIUM, PORCINE 5000 UNITS/1 ML VIAL SQ SCH ×2 (08:36→17:04)
[2018-06-17] MEDS: BUMETANIDE (1 MG) 1 MG TABLET GT SCH ×2 (08:36→17:05)
[2018-06-17] MEDS: ZINC SULFATE 220 MG CAPSULE GT SCH (08:40)
[2018-06-17] MEDS: ACETAMINOPHEN 650 MG/20.3 ML UDC GT SCH (08:41)
[2018-06-17] MEDS: PROSOURCE / PROSTAT (PYXIS) 30 ML UDC GT SCH (08:49)
[2018-06-17] MEDS: VITAMINS A AND D 56.7 GM TUBE TP SCH (09:04)
[2018-06-17] MEDS: Z GUARD REMEDY 2 OZ OINT TP SCH ×2 (09:04→20:34)
[2018-06-17 09:05] LABS: BAND % (MANUAL) 2 % (0.0-5.0); EOSINOPHILS % (MANUAL) 1 % (0-4); LYMPHOCYTES % (MANUAL) 10 % (16-48); MONOCYTES % (MANUAL) 5 % (0-11.0); NEUTROPHILS % (MANUAL) 82 (42-76)
[2018-06-17 11:42] LABS: CALCIUM, SERUM 8.3 mg/dL (8.5-10.1); CARBON DIOXIDE 30 mmol/L (21-32); CHLORIDE 103 mmol/L (98-107); CREATININE 0.8 mg/dL (0.6-1.3); GLUCOSE 125 mg/dL (74-106); POTASSIUM 3.7 mmol/L (3.5-5.1); SODIUM SERUM 141 mmol/L (136-145); UREA NITROGEN, BLOOD 32 mg/dL (7-18)
[2018-06-17 16:00] VITALS: BP 110/60
[2018-06-17] MEDS: IV NS 0.9% 1,000 ML IV PRN (17:24)
[2018-06-17] MEDS: JEVITY 1.2 CAL 1,000 ML BOTTLE GT PRN (17:29)
--- NOTE | 2018-06-17 18:11 | NUR ---
MS/RN NOTE THE PATIENT IS ALERT AND ORIENTED X1. ABLE TO MOUTH WORDS. RECEIVING OXYGEN AT 2L/MIN VIA NASAL CANNULA. RESPIRATION REGULAR AND UNLABORED. IN NO APPARENT DISTRESS. JEVITY 1.2 INFUSING AT 65ML/HR. ABDOMEN SOFT AND NON-DISTENDED. NO RESIDUAL AT THIS TIME. RFA G 20 PATENT AND SALINE LOCKED. LEFT WRIST G 18 PATENT AND NORMAL SALINE INFUSING AT 100ML/HR. NO S/S INFILTRATION NOTED. MCNAMARA CATH DRAINING CLEAR, YELLOW COLOR URINE. NO BLADDER DISTENSION NOTED. GOOD AND GENTLE SKIN CARE RENDERED. KEPT CLEAN AND COMFORTABLE. TURNED AND REPOSITIONED Q2HR AND NEEDED. BED LOW AND LOCKED. SIDE RAILS UP X3. CALL LIGHT WITHIN REACH. WILL ENDORSE TO NURSE INTERN.
--- NOTE | 2018-06-17 19:27 | NUR ---
MS RN NOTE RECEIVED PT IN STABLE CONDITION A&O X1. NO SIGNS OF SOB OR DISTRESS. PT CURRENTLY ON O2 VIA NC ON 2LPM, TOLERATING WELL. JTUBE PATENT AND INTACT WITH NO RESIDUAL NOTED. PT HAS MCNAMARA CATH DRAINING ADEQUATE URINE. FAMILY CURRENTLY AT BEDSIDE. SAFETY MEASURES IN PLACE: BED LOW, LOCKED, UPPER RAILS UP, AND CALL LIGHT WITHIN REACH. WILL CONT. TO MONITOR.
[2018-06-17 20:00] VITALS: BP 120/65
--- NOTE | 2018-06-17 20:36 | NUR ---
MS RN NOTE ROUTINE PROAMATINE HELD FOR BP OF 121/65. WILL CONT TO MONITOR.
[2018-06-18] MEDS: ALBUTEROL FS 2.5 MG/3 ML VIAL.NEB NEB SCH ×6 (03:24→23:44)
[2018-06-18] MEDS: IPRATROPIUM NEB FS 0.5 MG/2.5 ML AMPUL.NEB NEB SCH ×6 (03:24→23:44)
[2018-06-18] MEDS: PIPERACILLIN /TAZOBACTAM 3.375 G in IV D5W 100 ML IV SCH ×3 (04:10→20:18)
[2018-06-18] MEDS: MIDODRINE HCL (5MG) 5 MG TABLET GT SCH ×3 (04:18→20:28)
--- NOTE | 2018-06-18 06:03 | NUR ---
MS RN NOTE TRIED TO ADMINISTER 0600 VANCOMYCIN DOSE. UPON SCANNING, COMPUTER SAID THAT ORDER IS D/C. CALLED JOSÉ (PHARM) AND HE STATED TO CALL IN HOUSE PHARM AT 0700 AM FOR NEW BAG AND TO HANG MEDICATION LATE. WILL FOLLOW UP WITH AM PHARMACY FOR NEW BAG.
[2018-06-18 06:25] LABS: CALCIUM, SERUM 8.3 mg/dL (8.5-10.1); CARBON DIOXIDE 30 mmol/L (21-32); CHLORIDE 103 mmol/L (98-107); CREATININE 0.7 mg/dL (0.6-1.3); GLUCOSE 121 mg/dL (74-106); SODIUM SERUM 139 mmol/L (136-145); UREA NITROGEN, BLOOD 25 mg/dL (7-18)
--- NOTE | 2018-06-18 06:29 | NUR ---
MS RN NOTE PT IN STABLE CONDITION A&O X1. NO SIGNS OF SOB OR DISTRESS. PT CURRENTLY ON O2 VIA NC ON 2LPM, TOLERATING WELL. JTUBE PATENT AND INTACT WITH NO RESIDUAL NOTED. PT HAS MCNAMARA CATH = 1,000ML OUT. FAMILY CURRENTLY AT BEDSIDE. SAFETY MEASURES IN PLACE: BED LOW, LOCKED, UPPER RAILS UP, AND CALL LIGHT WITHIN REACH. WILL CONT. TO MONITOR.
--- NOTE | 2018-06-18 07:10 | NUR ---
RN NOTES PATIENT ASLEEP, RESPONSIVE TO STIMULI, OPENS EYES. NAD, KEPT COMFORTABLE, IVF INFUSING AND TOLERATIGN WELL, NEEDS ATTENDED, CALL LIGHT WITHIN REACH, WILL CONTINUE TO MONITOR.
[2018-06-18] MEDS: VANCOMYCIN 1 GM in IV D5W 250 ML IV SCH ×2 (07:14→23:50)
[2018-06-18 08:00] VITALS: BP 112/58
[2018-06-18] MEDS: VITAMIN B COMP W-C 1 TAB TABLET GT SCH (09:19)
[2018-06-18] MEDS: ZINC SULFATE 220 MG CAPSULE GT SCH (09:19)
[2018-06-18] MEDS: LEVOTHYROXINE SODIUM 50 MCG TABLET GT SCH (09:19)
[2018-06-18] MEDS: PANTOPRAZOLE 40 MG/PACK PACK GT SCH (09:19)
[2018-06-18] MEDS: POLYETHYLENE GLYCOL 3350 17 GM POWD.PACK GT SCH (09:19)
[2018-06-18] MEDS: MULTIVIT W/MINERALS 1 TAB TABLET GT SCH (09:19)
[2018-06-18] MEDS: MODAFINIL 100 MG TABLET GT SCH (09:19)
[2018-06-18] MEDS: ASCORBIC ACID 500 MG TABLET GT SCH (09:19)
[2018-06-18] MEDS: LACTOBACILLUS RHAMNOSUS GG 1 EACH CAP.SPRINK GT SCH (09:20)
[2018-06-18] MEDS: ASPIRIN 81 MG TAB.CHEW GT SCH (09:20)
[2018-06-18] MEDS: CLOPIDOGREL BISULFATE 75 MG TABLET GT SCH (09:20)
[2018-06-18] MEDS: BUMETANIDE (1 MG) 1 MG TABLET GT SCH ×2 (09:20→16:09)
[2018-06-18] MEDS: FOLIC ACID 1 MG TABLET GT SCH (09:20)
[2018-06-18] MEDS: CARBIDOPA/LEVODOPA 25/100 MG 1 UDTAB GT SCH ×4 (09:20→20:27)
[2018-06-18] MEDS: FERROUS SULFATE (325 MG) 325 MG/TAB TABLET GT SCH (09:20)
[2018-06-18] MEDS: Z GUARD REMEDY 2 OZ OINT TP SCH ×2 (09:22→20:38)
[2018-06-18] MEDS: VITAMIN E 400 UNIT CAPSULE GT SCH (09:22)
[2018-06-18] MEDS: ACETAMINOPHEN 650 MG/20.3 ML UDC GT SCH (09:42)
[2018-06-18] MEDS: PROSOURCE / PROSTAT (PYXIS) 30 ML UDC GT SCH (09:43)
[2018-06-18] MEDS: HEPARIN SODIUM, PORCINE 5000 UNITS/1 ML VIAL SQ SCH ×2 (09:45→16:11)
[2018-06-18] MEDS: VITAMINS A AND D 56.7 GM TUBE TP SCH (09:49)
[2018-06-18] MEDS: IV NS 0.9% 1,000 ML IV PRN (12:06)
[2018-06-18] MEDS: JEVITY 1.2 CAL 1,000 ML BOTTLE GT PRN (12:19)
--- NOTE | 2018-06-18 13:00 | NUR ---
RN NOTES WOUND TREATMENT RENDERED, KALA. HEELS OFFLOADED, SKIN CARE PROVIDED, TURNED AND REPOSITIONED EVERY2 HOURS, CALL LIGHT WITHIN REACH, WILL CONTINUE TO MONITOR.
[2018-06-18 16:00] VITALS: BP 111/57
--- NOTE | 2018-06-18 18:30 | NUR ---
RN NOTES PATIENT A/OX1, NAD, BREATHING EVEN AND UNLABORED, ON O2 WITH SPO2 > 92%. TURNED AND REPOSITIONED EVERY 2 HOURS, WOUND TREATMENT RENDERED, CALL LIGHT WITHIN REACH, WILL ENDORSE TO BAG WASHER FOR PRINCE.
--- NOTE | 2018-06-18 19:20 | NUR ---
MS RN NOTE RECEIVED PATIENT IN BED, A&O X1. NO SIGNS OF SOB OR DISTRESS. PERIPHERAL IV INFUSING AT 100ML/HR. JTUBE FEEDING RUNNING AT 65ML/HR. MCNAMARA CATH IN PLACE DRAINING CLEAR, YELLOW URINE. SAFETY MEASURES IN PLACE: BED LOW, LOCKED, UPPER RAILS UP, AND CALL LIGHT WITHIN REACH. WILL CONTINUE TO MONITOR ACCORDINGLY.
[2018-06-18 20:00] VITALS: BP 125/64
[2018-06-18 20:02] VITALS: BP 125/64
--- NOTE | 2018-06-18 20:28 | NUR ---
MS RN NOTE ROUTINE PROAMATINE HELD FOR BP OF 125/64. WILL CONTINUE TO MONITOR.
[2018-06-19] MEDS: JEVITY 1.2 CAL 1,000 ML BOTTLE GT PRN ×2 (02:20→17:22)
[2018-06-19] MEDS: IPRATROPIUM NEB FS 0.5 MG/2.5 ML AMPUL.NEB NEB SCH ×7 (03:46→22:54)
[2018-06-19] MEDS: ALBUTEROL FS 2.5 MG/3 ML VIAL.NEB NEB SCH ×7 (03:46→22:54)
[2018-06-19] MEDS: PIPERACILLIN /TAZOBACTAM 3.375 G in IV D5W 100 ML IV SCH ×2 (04:43→12:39)
[2018-06-19] MEDS: MIDODRINE HCL (5MG) 5 MG TABLET GT SCH ×3 (04:55→23:08)
[2018-06-19 06:34] LABS: CALCIUM, SERUM 8.2 mg/dL (8.5-10.1); CARBON DIOXIDE 29 mmol/L (21-32); CHLORIDE 102 mmol/L (98-107); CREATININE 0.7 mg/dL (0.6-1.3); GLUCOSE 114 mg/dL (74-106); POTASSIUM 4.2 mmol/L (3.5-5.1); SODIUM SERUM 136 mmol/L (136-145); UREA NITROGEN, BLOOD 21 mg/dL (7-18)
--- NOTE | 2018-06-19 06:49 | NUR ---
MS RN CLOSING NOTE PATIENT IN BED, IN STABLE CONDITION A&O X1. NO SIGNS OF SOB OR DISTRESS. PATIENT CURRENTLY ON SUPPLEMENTAL O2 VIA NC, TOLERATING WELL. FEEDING TUBE PATENT AND INTACT, RUNNING AT 65ML/HR WITH NO RESIDUAL NOTED. MCNAMARA CATH IN PLACE, DRAINED 700ML OF CLEAR YELLOW URINE. SAFETY MEASURES IN PLACE: BED LOW, LOCKED, UPPER RAILS UP, AND CALL LIGHT WITHIN REACH. WILL ENDORSE PRINCE TO MORNING RN
--- NOTE | 2018-06-19 07:26 | NUR ---
MS RN OPENING NOTE PATIENT IN BED, IN STABLE CONDITION A&O X1. NO SIGNS OF SOB OR DISTRESS. PATIENT CURRENTLY ON SUPPLEMENTAL O2 AT 2L VIA NC, TOLERATING WELL. ON JT FEEDING AT 65ML/HR CONTINUOUSLY, PATENT AND INTACT, RUNNING AT 65ML/HR WITHOUT RESIDUAL NOTED. ON IVF NS AT 100ML/HR TO RFA G20, INTACT AND NO INFILTRATION NOTED. ANOTHER PIV TO LEFT WRIST WITH G18, INTACT AND FLUCH WITH SALINE, NO INFILTRATION NOTED. MCNAMARA CATH IN PLACE WITH CLEAR YELLOW URINE. SAFETY MEASURES IN PLACE; BED LOW, LOCKED, UPPER RAILS UP, AND CALL LIGHT WITHIN REACH. WILL CONTINUE TO MONITOR.
[2018-06-19 08:00] VITALS: BP 106/50
[2018-06-19] MEDS: LACTOBACILLUS RHAMNOSUS GG 1 EACH CAP.SPRINK GT SCH (08:57)
[2018-06-19] MEDS: POLYETHYLENE GLYCOL 3350 17 GM POWD.PACK GT SCH (08:57)
[2018-06-19] MEDS: MODAFINIL 100 MG TABLET GT SCH (08:57)
[2018-06-19] MEDS: ACETAMINOPHEN 650 MG/20.3 ML UDC GT SCH (08:57)
[2018-06-19] MEDS: VITAMIN E 400 UNIT CAPSULE GT SCH (08:57)
[2018-06-19] MEDS: ASCORBIC ACID 500 MG TABLET GT SCH (08:58)
[2018-06-19] MEDS: VITAMIN B COMP W-C 1 TAB TABLET GT SCH (08:58)
[2018-06-19] MEDS: ZINC SULFATE 220 MG CAPSULE GT SCH (08:59)
[2018-06-19] MEDS: FOLIC ACID 1 MG TABLET GT SCH (08:59)
[2018-06-19] MEDS: ASPIRIN 81 MG TAB.CHEW GT SCH (08:59)
[2018-06-19] MEDS: CLOPIDOGREL BISULFATE 75 MG TABLET GT SCH (08:59)
[2018-06-19] MEDS: MULTIVIT W/MINERALS 1 TAB TABLET GT SCH (08:59)
[2018-06-19] MEDS: LEVOTHYROXINE SODIUM 50 MCG TABLET GT SCH (08:59)
[2018-06-19] MEDS: CARBIDOPA/LEVODOPA 25/100 MG 1 UDTAB GT SCH ×4 (08:59→23:06)
[2018-06-19] MEDS: PANTOPRAZOLE 40 MG/PACK PACK GT SCH (08:59)
[2018-06-19] MEDS: FERROUS SULFATE (325 MG) 325 MG/TAB TABLET GT SCH (08:59)
[2018-06-19] MEDS: BUMETANIDE (1 MG) 1 MG TABLET GT SCH ×2 (08:59→16:21)
[2018-06-19] MEDS: VITAMINS A AND D 56.7 GM TUBE TP SCH (09:01)
[2018-06-19] MEDS: Z GUARD REMEDY 2 OZ OINT TP SCH ×2 (09:01→23:09)
[2018-06-19] MEDS: HEPARIN SODIUM, PORCINE 5000 UNITS/1 ML VIAL SQ SCH ×2 (09:03→16:22)
[2018-06-19] MEDS: PROSOURCE / PROSTAT (PYXIS) 30 ML UDC GT SCH (09:04)
[2018-06-19 16:00] VITALS: BP 121/79
[2018-06-19] MEDS: IV NS 0.9% 1,000 ML IV PRN (16:12)
[2018-06-19] MEDS: CEFAZOLIN 1 GM in IV D5W 50 ML IV SCH (16:22)
--- NOTE | 2018-06-19 17:48 | NUR ---
MS RN NOTE PT NOTED OCCASIONAL COUGHING. SUCTIONING DONE BY RT. PRN ROBITUSSIN 5ML GIVEN ORDERED VIA GT. WILL CONTINUE TO MONITOR.
--- NOTE | 2018-06-19 18:29 | NUR ---
MS RN CLOSING NOTE PATIENT IN BED, RESTING COMFORTABLY IN HIGH BACK REST POSITION; A&O X1. NO SIGNS OF SOB OR DISTRESS. PATIENT CURRENTLY ON SUPPLEMENTAL O2 AT 2L VIA NC, TOLERATING WELL. ON JT FEEDING AT 65ML/HR CONTINUOUSLY, PATENT AND INTACT, RUNNING AT 65ML/HR WITHOUT RESIDUAL NOTED. ON IVF NS AT 100ML/HR TO RFA G20, INTACT AND NO INFILTRATION NOTED. ANOTHER PIV TO LEFT WRIST WITH G18, INTACT AND FLUSHED WITH SALINE, NO INFILTRATION NOTED. MCNAMARA CATH IN PLACE WITH CLEAR YELLOW URINE; WITH OUTPUT OF 1200ML. SAFETY MEASURES IN PLACE; BED LOW, LOCKED, UPPER RAILS UP X3. BILATERAL HEELS OFF-LOADED. KEPT COMFORTABLE, CLEAN AND DRY. CALL LIGHT WITHIN REACH. ALL NEEDS AND CARE PROVIDED WELL. WILL ENDORSE TO INCOMING NIGHT NURSE FOR CONTINUITY OF CARE.
--- NOTE | 2018-06-19 19:50 | NUR ---
MS/RN RECEIVE PATIENT APPEAR SLEEPING, AROUSABLE, APPEAR COMFORTABLE, NO SIGNS OF DISTRESS NOTED, HOB ELEVATED, GT FEEDING INFUSING, NO RESIDUAL NOTED, WILL MONITOR.
[2018-06-19 20:00] VITALS: BP 105/55
[2018-06-20] MEDS: CEFAZOLIN 1 GM in IV D5W 50 ML IV SCH ×2 (01:04→08:38)
[2018-06-20] MEDS: ALBUTEROL FS 2.5 MG/3 ML VIAL.NEB NEB SCH ×4 (05:56→15:10)
[2018-06-20] MEDS: IPRATROPIUM NEB FS 0.5 MG/2.5 ML AMPUL.NEB NEB SCH ×4 (05:56→15:10)
[2018-06-20] MEDS: MIDODRINE HCL (5MG) 5 MG TABLET GT SCH ×2 (06:27→13:16)
[2018-06-20] MEDS: IV NS 0.9% 1,000 ML IV PRN (06:33)
[2018-06-20] MEDS: JEVITY 1.2 CAL 1,000 ML BOTTLE GT PRN (06:56)
--- NOTE | 2018-06-20 07:00 | NUR ---
MS RN OPENING NOTES RECEIVED PATIENT IN STABLE CONDITION. IN NO APPARENT DISTRESS. BEDSIDE RAILS ARE UPX2. BED IS LOCKED AND LOWERED. MCNAMARA CATHETER IS IN PLACE AND DRAINING. CALL LIGHT IS WITHIN REACH. IV LINE IS INTACT AND PATENT. WILL CONTINUE TO MONITOR PATIENT.
[2018-06-20 07:34] LABS: CALCIUM, SERUM 8.3 mg/dL (8.5-10.1); CARBON DIOXIDE 27 mmol/L (21-32); CHLORIDE 104 mmol/L (98-107); CREATININE 0.7 mg/dL (0.6-1.3); GLUCOSE 113 mg/dL (74-106); POTASSIUM 4.2 mmol/L (3.5-5.1); SODIUM SERUM 137 mmol/L (136-145); UREA NITROGEN, BLOOD 20 mg/dL (7-18)
--- NOTE | 2018-06-20 07:46 | NUR ---
MS/RN PATIENT APPEAR SLEEPING, APPEAR COMFORTABLE, NO DISTRESS NOTED, HAS BEEN SUCTIONED PRN THE WHOLE SHIFT, JT FEEDING INFUSING, HOB ELEVATED, ALL NEEDS ATTENDED AT THIS TIME, ENDORSED TO NEXT RN FOR CONTINUITY OF CARE.
[2018-06-20 08:00] VITALS: BP 119/57
[2018-06-20] MEDS: FERROUS SULFATE (325 MG) 325 MG/TAB TABLET GT SCH (08:38)
[2018-06-20] MEDS: PANTOPRAZOLE 40 MG/PACK PACK GT SCH (08:38)
[2018-06-20] MEDS: PROSOURCE / PROSTAT (PYXIS) 30 ML UDC GT SCH (08:38)
[2018-06-20] MEDS: ASCORBIC ACID 500 MG TABLET GT SCH (08:38)
[2018-06-20] MEDS: ZINC SULFATE 220 MG CAPSULE GT SCH (08:38)
[2018-06-20] MEDS: CLOPIDOGREL BISULFATE 75 MG TABLET GT SCH (08:38)
[2018-06-20] MEDS: MULTIVIT W/MINERALS 1 TAB TABLET GT SCH (08:38)
[2018-06-20] MEDS: POLYETHYLENE GLYCOL 3350 17 GM POWD.PACK GT SCH (08:38)
[2018-06-20] MEDS: FOLIC ACID 1 MG TABLET GT SCH (08:39)
[2018-06-20] MEDS: VITAMIN B COMP W-C 1 TAB TABLET GT SCH (08:39)
[2018-06-20] MEDS: ACETAMINOPHEN 650 MG/20.3 ML UDC GT SCH (08:39)
[2018-06-20] MEDS: Z GUARD REMEDY 2 OZ OINT TP SCH (08:39)
[2018-06-20] MEDS: BUMETANIDE (1 MG) 1 MG TABLET GT SCH (08:39)
[2018-06-20] MEDS: LEVOTHYROXINE SODIUM 50 MCG TABLET GT SCH (08:39)
[2018-06-20] MEDS: VITAMIN E 400 UNIT CAPSULE GT SCH (08:39)
[2018-06-20] MEDS: MODAFINIL 100 MG TABLET GT SCH (08:39)
[2018-06-20] MEDS: ASPIRIN 81 MG TAB.CHEW GT SCH (08:39)
[2018-06-20] MEDS: CARBIDOPA/LEVODOPA 25/100 MG 1 UDTAB GT SCH ×2 (08:39→13:16)
[2018-06-20] MEDS: LACTOBACILLUS RHAMNOSUS GG 1 EACH CAP.SPRINK GT SCH (08:39)
[2018-06-20] MEDS: VITAMINS A AND D 56.7 GM TUBE TP SCH (08:40)
[2018-06-20] MEDS: HEPARIN SODIUM, PORCINE 5000 UNITS/1 ML VIAL SQ SCH (09:04)
[2018-06-20 16:00] VITALS: BP 115/59
--- NOTE | 2018-06-20 17:20 | NUR ---
MS SENIOR DESIGN ENGINEER NOTES PATIENT DISCHARGED IN STABLE CONDITION. IN NO APPARENT DISTRESS. EXITCARE WAS SIGNED AND PROVIDED TO THE PARAMEDICS. ID BAND WAS REMOVED. BELONGINGS WERE CHECKED AND GIVEN TO THE PARAMEDICS. ALL NEEDS WERE MET. REPORT GIVEN TO CHAU VINES. PATIENT WAS ESCORTED OUT OF THE FACILITY VIA GURNEY BY PARAMEDICS.
== END 2018-06-20 18:30 | DRG 871 ==
LOC: ER 16:00 → TELE 18:32 → MED 06-15 11:29
PROVIDERS: ADMIT Family Medicine; ATTEND Internal Medicine
DX: A41.9 Sepsis, unspecified organism (principal); E43 Unspecified severe protein-calorie malnutrition; I21.A1 Myocardial infarction type 2; N17.0 Acute kidney failure with tubular necrosis; J96.00 Acute respiratory failure, unspecified whether with hypoxia or hypercapnia; R53.2 Functional quadriplegia; N39.0 Urinary tract infection, site not specified; E87.2 Acidosis; D63.8 Anemia in other chronic diseases classified elsewhere; G20 Parkinson's disease; F03.90 Unspecified dementia, unspecified severity, without behavioral disturbance, psychotic disturbance, mood disturbance, and anxiety; D72.829 Elevated white blood cell count, unspecified; R73.9 Hyperglycemia, unspecified; I10 Essential (primary) hypertension; L89.220 Pressure ulcer of left hip, unstageable; L89.210 Pressure ulcer of right hip, unstageable; L22 Diaper dermatitis; S31.501A Unspecified open wound of unspecified external genital organs, male, initial encounter; D69.2 Other nonthrombocytopenic purpura; L85.3 Xerosis cutis; Z93.1 Gastrostomy status; L98.8 Other specified disorders of the skin and subcutaneous tissue; R62.7 Adult failure to thrive
CPT/HCPCS: 31720; 36415; 71045-TC; 80048-TC; 80053-TC; 80061-TC; 80076-TC; 80202-TC; 81000-TC; 82533; 82728-TC; 83540-TC; 83605-TC; 83735-TC; 83880; 84100-TC; 84439-TC; 84443-TC; 84484-TC; 85025-TC; 85730-TC; 87040-TC; 87081-TC; 87086-TC; 87186-TC; 87400; 93307-TC; 94760-TC; 94799-TC; G0378; J0690; J0692; J1644; J1940; J2543; J3370; J7030; J7050; J7060

== ENCOUNTER 2018-10-16 02:21 | Inpatient (IN) | payer MEDICARE, BC ==
[2018-10-16] VITALS (38 sets, daily range): BP systolic 77–110; BP diastolic 30–84
[~2018-10-16] VITALS: Ht 180.3 cm; Wt 73.0 kg
[~2018-10-16 02:21] MED LIST: ACET325T53 GT; ALBUT2 CONTNEB; AMIN30LI27 GT; ARGI1POW13 GT; ASCO500T9 GT; ASPI-1169 GT; ATOR80TA GT; BISA10SU61 RC; BUME1TAB34 GT; CARB-93 GT; CLOP75TA15 GT; CRAN3875 GT; CRAN425C6 GT; FERR325T23 GT; FOLI0.8T GT; GUAI5SYR GT; HEPA50008 SQ; IPRA3AMP23 IH; LACT-96 GT; LACT1CAP7 GT; LANS30CA54 GT; LEVO50TA8 GT; MAGN400O6 GT; MIDO10TA GT; MODA100T14 GT; MULT-213 GT; NITR0.4T48 SL; ONDA4TAB5 GT; PIPE3.379 IV; POLY17PO4 GT; RXVAN XX; VITA1CAP GT; VITA400C19 GT; ZINC220T GT
--- NOTE | 2018-10-16 02:40 | NUR ---
PT BIBPA FROM SNF. SENT BY PMD DUE TO ABNORMAL CXR ON 10/11/18, READING SHOWED CHF. PER PA, PT WAS ON 5L NC ON SCENE, BEGAN TO DESAT TO 89% EN ROUTE AND RA PUT PT ON 6L. PT TOLERATING WELL, O2 SAT 97% ON ARRIVAL. NOTED BILATERAL RALES. PT AWAKE, NONVERBAL. VITAL SIGNS STABLE. NO ACUTE DISTRESS NOTED AT THIS TIME. WILL CONTINUE TO MONITOR
[2018-10-16 03:27] LABS: APPEARANCE,URINE Slightly Cloudy (CLEAR); BILIRUBIN,URINE Negative (NEGATIVE); BLOOD, URINE Trace-lysed Ery/uL (NEGATIVE); COLOR,URINE Yellow (YELLOW); KETONES,URINE Negative (NEGATIVE); LEUKOCYTE ESTERASE ,URINE Small (NEGATIVE); NITRITE, URINE Negative (NEGATIVE); PH,URINE 6.5 (5.0-8.0); PROTEIN,URINE 100 mg/dl (NEGATIVE); UGLUCOSE Negative (NEGATIVE)
[2018-10-16] MEDS ORDERED: FERR300L GT (03:28)
[2018-10-16] MEDS ORDERED: POTA20LI5 GT (03:28)
[2018-10-16] MEDS ORDERED: FOLI1TAB16 PO (03:28)
[2018-10-16] MEDS ORDERED: LACT-96 GT (03:28)
[2018-10-16] MEDS ORDERED: BACL10TA GT (03:28)
[2018-10-16] MEDS ORDERED: ATOR40TA GT (03:28)
[2018-10-16] MEDS ORDERED: FURO20TA4 GT (03:28)
[2018-10-16] MEDS ORDERED: PROT946L GT (03:28)
--- NOTE | 2018-10-16 03:30 | NUR ---
RADIOLOGY AT BEDSIDE FOR CXR
[2018-10-16 03:34] LABS: CALCIUM, SERUM 9.9 mg/dL (8.5-10.1); CARBON DIOXIDE 30 mmol/L (21-32); CHLORIDE 103 mmol/L (98-107); CREATININE 0.9 mg/dL (0.6-1.3); GLUCOSE 122 mg/dL (74-106); POTASSIUM 4.3 mmol/L (3.5-5.1); SODIUM SERUM 142 mmol/L (136-145); UREA NITROGEN, BLOOD 45 mg/dL (7-18)
[2018-10-16 03:40] LABS: BASOPHILS # (AUTO) 0.1 /CMM (0.0-0.2); BASOPHILS % (AUTO) 0.4 % (0.0-2.0); EOSINOPHILS % (AUTO) 0.5 % (0.0-6.0); HEMATOCRIT 27 % (39-51); HEMOGLOBIN 8.8 g/dL (13.5-17.5); LYMPHOCYTES # (AUTO) 0.8 /CMM (0.8-4.8); LYMPHOCYTES % (AUTO) 4.9 % (20.0-44.0); MEAN CORPUSCULAR HGB CONC 33 g/dl (31.0-36.0); MEAN CORPUSCULAR VOLUME 100 fL (80-96); MONOCYTES # (AUTO) 0.9 /CMM (0.1-1.30); MONOCYTES % (AUTO) 5.4 % (2.0-12.0); NEUTROPHILS # (AUTO) 15.2 /CMM (1.8-8.9); NEUTROPHILS % (AUTO) 88.8 % (43.0-81.0); PLATELET COUNT (AUTO) 231 /CMM (150-450); RED BLOOD CELL COUNT(AUTO) 2.68 MIL/uL (4.5-6.0); WHITE BLOOD COUNT (AUTO) 17.1 K/uL (4.3-11.0)
[2018-10-16 03:44] LABS: BACTERIA,URINE Rare /HPF (None Seen); RBC,URINE 0-2 /HPF (0-2); SQUAMOUS EPITHELIAL CELL,UR Few /HPF (None Seen)
[2018-10-16 03:52] LABS: ALANINE AMINOTRANSFERASE 26 U/L (12-78); ALBUMIN 2.1 g/dL (3.4-5.0); ALKALINE PHOSPHATASE 121 U/L (46-116); ASPARTATE AMINOTRANSFERASE 24 U/L (15-37); BILIRUBIN,DIRECT 0.2 mg/dL (0.0-0.2); BILIRUBIN,TOTAL 0.5 mg/dL (0.2-1.0); TOTAL PROTEIN, SERUM 7.2 g/dL (6.4-8.2)
[2018-10-16] MEDS ORDERED: CEFTRIAXONE 1 G in IV D5W 50 ML IV ONE (04:30)
[2018-10-16] MEDS ORDERED: CEFTRIAXONE 1GM BAG (ER ONLY) 50 ML IV ONE (04:44)
[2018-10-16] MEDS ORDERED: FUROSEMIDE 40 MG/4 ML VIAL IV ONE (05:00)
[2018-10-16] MEDS ORDERED: FUROSEMIDE 40 MG/4 ML VIAL ONE (05:05)
--- NOTE | 2018-10-16 06:34 | NUR ---
GAVE REPORT TO KEERTHI ANAYA FOR PRINCE
--- NOTE | 2018-10-16 06:52 | NUR ---
PT TRANSFERRED PER ACLS PROTOCOL
--- NOTE | 2018-10-16 07:46 | NUR ---
MS/RN Patient received Report given by ER nurse to overnight stocker RN. Patient appears in no distress at this time, awaiting admitting orders, needs to be admitted. Medication reconciliation nurse made aware that patient has just arrived on unit and medications needed to be entered into the computer.
--- NOTE | 2018-10-16 08:25 | NUR ---
MS/RN SOB Patient noted to becoming increasingly short of breath. Dr Bennett notified, order given for ABG. RT at bedside drawing blood. Breathing treatment in progress.
[2018-10-16] MEDS ORDERED: IPRATROPIUM NEB FS 0.5 MG/2.5 ML AMPUL.NEB NEB PRN (08:30)
[2018-10-16] MEDS ORDERED: ALBUTEROL FS 2.5 MG/3 ML VIAL.NEB NEB PRN (08:30)
[2018-10-16 08:35] LABS: ABG PCO2 36.6 mmHg (35.0-45.0); ABG PH 7.519 (7.350-7.450); ABG PO2 71.2 mmHg (75.0-100.0); AaDO2 171.9 mmHg; COHb 0.4 % (0.5-1.5); MetHb 0.5 % (0.0-1.5); O2Hb 92.2 % (94.0-97.0); SITE, ABG Right Radial; VENT MODE, BG 5L NC
--- NOTE | 2018-10-16 08:45 | NUR ---
MS/RN New orders AGB results relayed to Dr Bennett, withorders given to transfer patient to ICU for possible bi-pap.
[2018-10-16] MEDS: FUROSEMIDE 40 MG/4 ML VIAL IV SCH ×2 (09:00→17:00)
[2018-10-16] MEDS: PROSOURCE / PROSTAT (PYXIS) 30 ML UDC GT SCH ×2 (09:00→18:33)
--- NOTE | 2018-10-16 09:30 | NUR ---
MS/RN Report to ICU Report given to ICU nurse. Made aware that that pictures still needed to be taken of feet and head wound.
--- NOTE | 2018-10-16 09:35 | NUR ---
MS/RN Late entry Unable to complete skin assessment due to defining respiratory status.
--- NOTE | 2018-10-16 09:44 | NUR ---
MS/lease administration analyst updated Son Huey Merritt called and made aware that father had been transferred to ICU for closer observation due to respiratory status. -Daniele Merritt -
--- NOTE | 2018-10-16 10:00 | NUR ---
HAIRSPRING STUDDERBELT LOOP CUTTER NOTES: RECEIVED PT FROM TELE UNIT DUE TO INCREASING SOB AND WOB AND POSSIBLE BIPAP. PT LETHARGIC AND UNABLE UNABLE TO COMMUNICATE NEEDS. IV TO RIGHT WRIST NOTED TO BE PATENT AND INTACT. DR VELÁZQUEZ AT BEDSIDE. VERBAL ORDERS OBTAINED BY MD TO CONTINUE DEEP SUCTIONING. RT MADE AWARE. WILL CONTINUE TRANSFER ASSESSMENT AND AWAIT FOR FURTHER MD ORDERS.
[2018-10-16] MEDS ORDERED: ALBUTEROL HALF STRENGTH 1.25 MG/3 ML VIAL.NEB NEB SCH (10:30)
[2018-10-16] MEDS: ALBUTEROL HALF STRENGTH 1.25 MG/3 ML VIAL.NEB NEB SCH ×4 (10:47→23:13)
[2018-10-16] MEDS: IPRATROPIUM NEB FS 0.5 MG/2.5 ML AMPUL.NEB NEB SCH ×4 (10:48→23:13)
[2018-10-16] MEDS: ACETYLCYSTEINE 10% SOLN 400 MG/4 ML VIAL NEB SCH ×3 (10:48→23:13)
[2018-10-16] MEDS ORDERED: VANCOMYCIN 1 GM in IV D5W 250 ML IV ONE (11:00)
[2018-10-16] MEDS ORDERED: FEE PK DOSING 1 MIN EA MC ONE (11:06)
[2018-10-16] MEDS: HEPARIN SODIUM, PORCINE 5000 UNITS/1 ML VIAL SQ SCH ×2 (11:27→18:34)
[2018-10-16] MEDS: NOREPINEPHRINE 8 MG in IV D5W 500 ML IV PRN ×2 (12:10→22:31)
[2018-10-16] MEDS: PIPERACILLIN /TAZOBACTAM 3.375 G in IV D5W 50 ML IV SCH ×2 (13:22→18:33)
[2018-10-16 13:57] LABS: ABG BASE EXCESS 4.3 mmol/L; ABG PH 7.502 (7.350-7.450); ABG PO2 129.7 mmHg (75.0-100.0); COHb 0.3 % (0.5-1.5); MetHb 0.7 % (0.0-1.5); SITE, ABG Right Radial; VENT MODE, BG 85% NRB MASK
--- NOTE | 2018-10-16 14:10 | NUR ---
CHEMISTRY DEPARTMENT CHAIR NOTES: MD UPDATE (DR VELÁZQUEZ) 9290: MD CONTACTED IN REGARDS TO PT'S SLIGHT INCREASE IS WORK OF BREATHING, DESATURATION ON NC, AND TACHYCARDIA. MD ALSO MADE AWARE THAT PT WAS PLACED ON A NONREBREATHER MASK, AND HAS FREQUENTLY BEEN DEEP SUCTIONED ADVISED. TELEPHONE ORDER OBTAINED FOR A REPEAT ABG. 3078: RESULTS PF ABG RELAYED TO MD. NO CHANGES TO CURRENT TREATMENT PER MD
--- NOTE | 2018-10-16 14:28 | NUR ---
DUMPER OPERATOR NOTES:MD UPDATE (DR GALEANA) DR GALEANA MADE AWARE OF PT'S HIGH TEMP AND LOW BP. ORDERS OBTAINED FOR PRN TYLENOL 650 MG Q6HR VIA GT AND LEVO DRIP.
[2018-10-16] MEDS: ACETAMINOPHEN 650 MG/20.3 ML UDC GT PRN ×2 (14:45→22:31)
--- NOTE | 2018-10-16 19:36 | NUR ---
STATEMENT PROCESSOR CLOSING NOTES PT STABLE AT THIS TIME. TEMP HAS NOW DROPPED TO 100.1. COOLING MEASURES CONTINUED. BP STABLE ON LEVO DRIP. INVASIVE LINES REMAIN C/D/I. SAFETY MEASURES IN PLACE. ENDORSED TO NIGHTSHIFT RN FOR PRINCE
[2018-10-16] MEDS: HYDROGEL DRESSING 90 GM TUBE TP SCH (21:53)
[2018-10-16] MEDS: Z GUARD REMEDY 2 OZ OINT TP SCH (21:53)
[2018-10-16] MEDS: VANCOMYCIN 0.75 GM in IV D5W 250 ML IV SCH (21:53)
[2018-10-16] MEDS: MEROPENEM 1 G in IV NS 0.9% 100 ML IV SCH (21:53)
[2018-10-16] MEDS ORDERED: NOREPINEPHRINE 4 MG/4 ML AMPUL IV ONE (21:59)
--- NOTE | 2018-10-16 22:00 | NUR ---
ESCALATOR ATTENDANT NOTES NOTIFIED BY PRIMARY NURSE JUAN THAT LEVOPHED GTT IS COMPLETELY EMPTY, NO BAG FOUND IN CASETTE OR FRIDGE. CHARGE NURSE LAURA UNAVAILABLE AT THIS TIME TO MIX MEDICATION. MEDICATION OVERRIDE PERFORMED AND MIXED BY NURSE HARPER.
[2018-10-16] MEDS ORDERED: IV NS 0.9% 250 ML IV ONE (23:00)
[2018-10-17] VITALS (85 sets, daily range): BP systolic 72–117; BP diastolic 47–82
[2018-10-17] MEDS ORDERED: AMIODARONE 150 MG/3 ML VIAL IV ONE ×2 (01:40→01:41)
[2018-10-17] MEDS ORDERED: AMIODARONE 150 MG in IV D5W 100 ML IV ONE (02:00)
[2018-10-17] MEDS ORDERED: AMIODARONE 900 MG in IV D5W 482 ML IV PRN (02:00)
[2018-10-17] MEDS ORDERED: NOREPINEPHRINE 4 MG/4 ML AMPUL IV ONE (02:43)
[2018-10-17] MEDS: HEPARIN SODIUM, PORCINE 5000 UNITS/1 ML VIAL SQ SCH ×3 (03:00→18:50)
[2018-10-17] MEDS: ALBUTEROL HALF STRENGTH 1.25 MG/3 ML VIAL.NEB NEB SCH ×6 (03:30→23:31)
--- NOTE | 2018-10-17 03:41 | NUR ---
RN NOTES RECEIVED PATIENT IN BED, EYES CLOSED. NOTED WITH CONGESTION SUCTIONED LARGE AMOUNT OF SEMI-LOOSE YELLOWISH SECRETION. PATIENT NOTED TO BE FEBRILE WITH TEMPERATURE OF 100.5, COOLING MEASURES PROVIDED. LYDIA HUGGER APPLIED. WENT DOWN TO 99.5. ON LEVOPHED DRIP, ADVERSE EFFECT NOTED WITH HELP MAINTAINING BLOOD PRESSURE WITHIN NORMAL LEVEL. AT ABOUT 0130, HEART RATE SHOOTS UP TO 200BPM FROM 116. CALLED MD AND OBTAINED ORDERS FOR STAT EKG, START AMIODARONE BOLUS AND DRIP AFTERWARDS, NO SIDE EFFECTS NOTED. NO PHYSICAL MANIFESTATION OF PAIN OR DISCOMFORT. KEPT CLEAN AND DRY
[2018-10-17] MEDS: IPRATROPIUM NEB FS 0.5 MG/2.5 ML AMPUL.NEB NEB SCH ×6 (03:46→23:31)
[2018-10-17] MEDS: NOREPINEPHRINE 8 MG in IV D5W 500 ML IV PRN ×2 (03:47→07:34)
[2018-10-17] MEDS ORDERED: PROPOFOL 100 ML ONE (04:47)
[2018-10-17] MEDS: PROPOFOL 100 ML IV PRN (04:51)
--- NOTE | 2018-10-17 04:55 | NUR ---
CODE BLUE AT 0413 AM. CODED PT PER ACLS GRIDLINES. PT INTUBATED WITH 7.5 ETT PROPERLY SECURED AT 26 CM MANUEL. PT BAGGED WITH BILATERAL CHEST RISE AND POSITIVE CO2 COLOR CHANGE NOTED. PT PLACED ON MECHANICAL VENT ON NOTED SETTINGS VENT PLUGGED INTO RED OUTLET. POST X RAY, WITHDREW ETT 1 CM PER DOCTOR ORDER. PT MILAGROS VENT WELL. WILL CONT TO MONITOR PT FOR REST OF SHIFT.
[2018-10-17 05:13] LABS: BASOPHILS # (AUTO) 0.1 /CMM (0.0-0.2); BASOPHILS % (AUTO) 0.4 % (0.0-2.0); EOSINOPHILS % (AUTO) 2.3 % (0.0-6.0); HEMATOCRIT 28 % (39-51); LYMPHOCYTES # (AUTO) 0.2 /CMM (0.8-4.8); LYMPHOCYTES % (AUTO) 0.9 % (20.0-44.0); MEAN CORPUSCULAR HGB CONC 32 g/dl (31.0-36.0); MEAN CORPUSCULAR VOLUME 103 fL (80-96); MONOCYTES # (AUTO) 0.2 /CMM (0.1-1.30); NEUTROPHILS % (AUTO) 95.4 % (43.0-81.0); PLATELET COUNT (AUTO) 256 /CMM (150-450); RED BLOOD CELL COUNT(AUTO) 2.69 MIL/uL (4.5-6.0); WHITE BLOOD COUNT (AUTO) 24.1 K/uL (4.3-11.0)
[2018-10-17] MEDS: MEROPENEM 1 G in IV NS 0.9% 100 ML IV SCH ×2 (05:14→18:49)
[2018-10-17 05:28] LABS: IRON, SERUM 23 ug/dl (50-175); TOTAL IRON BINDING CAPACITY 118 ug/dl (250-450)
[2018-10-17 05:41] LABS: ALANINE AMINOTRANSFERASE 25 U/L (12-78); ALBUMIN 1.8 g/dL (3.4-5.0); ALKALINE PHOSPHATASE 115 U/L (46-116); ASPARTATE AMINOTRANSFERASE 55 U/L (15-37); BILIRUBIN,TOTAL 0.6 mg/dL (0.2-1.0); CALCIUM, SERUM 9.4 mg/dL (8.5-10.1); CARBON DIOXIDE 26 mmol/L (21-32); CHLORIDE 99 mmol/L (98-107); CREATININE 1.3 mg/dL (0.6-1.3); GLUCOSE 198 mg/dL (74-106); PHOSPHORUS 4.4 mg/dL (2.5-4.9); POTASSIUM 4.1 mmol/L (3.5-5.1); SODIUM SERUM 136 mmol/L (136-145); UREA NITROGEN, BLOOD 45 mg/dL (7-18)
[2018-10-17 05:42] LABS: MAGNESIUM 2.2 mg/dL (1.8-2.4); TOTAL PROTEIN, SERUM 6.9 g/dL (6.4-8.2)
[2018-10-17 06:01] LABS: FERRITIN 4890 ng/mL (8-388)
[2018-10-17 06:10] LABS: ABG BASE EXCESS -3.3 mmol/L; ABG OXYGEN SATURATION 99.5 % (92.0-98.5); ABG PCO2 35.6 mmHg (35.0-45.0); ABG PH 7.391 (7.350-7.450); ABG PO2 405.9 mmHg (75.0-100.0); AaDO2 271.5 mmHg; COHb 0.3 % (0.5-1.5); MetHb 0.7 % (0.0-1.5); O2Hb 98.5 % (94.0-97.0); PEEP,BG 5 cm H2O; SITE, ABG Left Radial; VT, ABG 500 mL
--- NOTE | 2018-10-17 07:15 | NUR ---
SUPERVISOR MODEL MAKING INITIAL NOTES PT RECEIVED, INTUBATED (ETT 7.5, 25 AT LIP), AND ON MECHANICAL VENTILATION. VENT SETTINGS ASSESSED FOR ACCURACY. AC MODE: RATE 16, TV 450, FIO2 40% AND A PEEP OF 5. PT RESPONSIVE TACTILE STIMULI HOWEVER UNABLE TO FOLLOW COMMANDS. RIGHT UPPER ARM PICC NOTED TO BE PATENT AND INTACT. NO REDNESS OR SIGNS OF INFILTRATION NOTED. BP AND HR STABLE AT THIS TIME. PT CURRENTLY ON LEVO DRIP, AMIO AND DIPRIVAN DRIP AND TOLERATING WELL. BED IN LOW LOCKED POSITION, SIDE RAILS UP X3, WILL CONTINUE TO MONITOR
--- NOTE | 2018-10-17 07:24 | NUR ---
rn notes family notified of the patients condition, spoke with son curtes, appreciated the call.
[2018-10-17] MEDS: ACETYLCYSTEINE 10% SOLN 400 MG/4 ML VIAL NEB SCH ×3 (07:41→23:31)
--- NOTE | 2018-10-17 07:41 | NUR ---
RT Pt received orally intubated with a 7.5 ETT secured at 25cm at the lip line. Pt is currently sedated at this time but responds to stimuli when sx'd. Vent alarms are set and audible with BVM by bedside. SPEECH TEACHER cuff pressure noted. Vent is plugged into red outlet. Sx'd moderate thick yellow secretions. No respiratory distress noted. Addendum: 10/17/18 at 1206 by BRYCE RUBI RT Amended: Links added.
--- NOTE | 2018-10-17 08:04 | NUR ---
WOUND CARE CONSULT: PT FOLLOWED BY PLASTIC SURGERY TEAM FOR WOUNDS. DEFER TO PLASTICS FOR WOUND TREATMENT PLAN. DISCUSSED SKIN PROTECTION WITH NURSING STAFF. FIRST STEP LOW AIRLOSS MATTRESS ON ORDER. WILL SEE PRN.
[2018-10-17] MEDS: FUROSEMIDE 40 MG/4 ML VIAL IV SCH ×2 (09:00→17:00)
--- NOTE | 2018-10-17 09:58 | NUR ---
PROBATION AGENT NOTES: AMIO DRIP ORDERS NOTED TO D/C AMIO DRIP BY DR. INGRAM. PER MD, PT NO LONGER NEEDS DRIP OR INITIAION OF PO/GTUBE AMIO PILL. PT NOTED TO BE SINUS TACH AT THIS TIME.
[2018-10-17] MEDS: NEOMY SULF/BACITRAC ZN/POLY 15 GM TUBE TP SCH ×2 (10:02→18:49)
[2018-10-17] MEDS: Z GUARD REMEDY 2 OZ OINT TP SCH ×2 (10:02→22:11)
[2018-10-17] MEDS: PROSOURCE / PROSTAT (PYXIS) 30 ML UDC GT SCH ×2 (10:03→16:45)
[2018-10-17] MEDS: HYDROGEL DRESSING 90 GM TUBE TP SCH ×2 (10:26→22:11)
[2018-10-17] MEDS: VANCOMYCIN 0.75 GM in IV D5W 250 ML IV SCH (10:27)
[2018-10-17] MEDS: NOREPINEPHRINE 16 MG in IV D5W 500 ML IV PRN ×2 (12:37→23:48)
--- NOTE | 2018-10-17 14:00 | NUR ---
BUILDING MAINTENANCE WORKER NOTES: [facility] PT'S FAMILY HAD QUESTIONS IN REGARD TO [employer]GAN DONATION. [facility] CALLED. PER TECH, PT IS NOT A CANDIDATE FOR ORGAN DONATION DUE TO AGE AND COMORBIDITIES. FURTHERMORE, A CALL DOES NOT NEED TO BE PLACED ONCE PT'S HAS HE NOW HAS AN OPEN FILE. FAMILY MADE AWARE
--- NOTE | 2018-10-17 15:32 | NUR ---
INFORMATION CLERK BROKERAGE NOTES: MD CONTACT DR. BANUELOS CONTACT X2 THROUGH EXCHANGE LINE. PT'S FAMILY AT BEDSIDE AND STATES THAT THEY WILL LIKE TO SPEAK TO MD IN REGARDS TO CODE STATUS AND COMFORT MEASURES. NO CALLBACK RECEIVED FROM MD. MD ALSO CONTACTED THROUGH [facility] PHONE IN REGARDS TO THIS MATTER AND GIVEN PT'S SON CONTACT INFORMATION
[2018-10-17] MEDS ORDERED: EPINEPHRINE (1:10,000) SYRINGE 1 MG/10 ML DISP.SYRIN IVP ONE (16:40)
--- NOTE | 2018-10-17 19:46 | NUR ---
PRESSURE SUPERVISOR CLOSING NOTES PT REMAINS STABLE ON VENT. VSS AT THIS TIME. INVASIVE LINES REMAIN PATENT AND INTACT. NO RESPONSE RECEIVED FROM DR DISLA IN REGARDS TO CODE STATUS. PRN CARE RENDERED. PT REPOSITIONED AND TURNED PER PROTOCOL. ENDORSED TO NIGHTSHIFT RN FOR PRINCE
--- NOTE | 2018-10-17 21:01 | NUR ---
RECEIVED PT INTUBATED 7.5 ETT SECURED AT 25CM AT THE LIP. NO RESP DISTRESS NOTED. PT TOLERATING VENT SETTINGS. SX'D FOR MOD AMT OF THICK WHITE SECRETIONS. VENT ALARMS SET AND AUDIBLE. AMBU BAG AT BEDSIDE. WILL CONTINUE TO MONITOR. Addendum: 10/17/18 at 2102 by PEREZ SHELBY RT Amended: Links added.
[2018-10-17] MEDS: ACETAMINOPHEN 650 MG/20.3 ML UDC GT PRN (23:36)
[2018-10-18] VITALS (61 sets, daily range): BP systolic 61–126; BP diastolic 28–86
[2018-10-18] MEDS: PROPOFOL 100 ML IV PRN (01:42)
[2018-10-18] MEDS: HEPARIN SODIUM, PORCINE 5000 UNITS/1 ML VIAL SQ SCH ×2 (03:00→10:57)
[2018-10-18] MEDS: ALBUTEROL HALF STRENGTH 1.25 MG/3 ML VIAL.NEB NEB SCH ×4 (03:42→15:30)
[2018-10-18] MEDS: IPRATROPIUM NEB FS 0.5 MG/2.5 ML AMPUL.NEB NEB SCH ×4 (03:42→15:30)
[2018-10-18 04:39] LABS: BASOPHILS # (AUTO) 0.1 /CMM (0.0-0.2); BASOPHILS % (AUTO) 0.9 % (0.0-2.0); EOSINOPHILS % (AUTO) 4.5 % (0.0-6.0); HEMATOCRIT 26 % (39-51); HEMOGLOBIN 8.7 g/dL (13.5-17.5); LYMPHOCYTES # (AUTO) 0.5 /CMM (0.8-4.8); MEAN CORPUSCULAR HGB CONC 33 g/dl (31.0-36.0); MEAN CORPUSCULAR VOLUME 101 fL (80-96); MONOCYTES # (AUTO) 0.1 /CMM (0.1-1.30); NEUTROPHILS # (AUTO) 13.7 /CMM (1.8-8.9); NEUTROPHILS % (AUTO) 90.6 % (43.0-81.0); PLATELET COUNT (AUTO) 205 /CMM (150-450); RED BLOOD CELL COUNT(AUTO) 2.58 MIL/uL (4.5-6.0); WHITE BLOOD COUNT (AUTO) 15.1 K/uL (4.3-11.0)
[2018-10-18] MEDS: MEROPENEM 1 G in IV NS 0.9% 100 ML IV SCH (04:49)
[2018-10-18 04:56] LABS: ALANINE AMINOTRANSFERASE 44 U/L (12-78); ALBUMIN 1.7 g/dL (3.4-5.0); ALKALINE PHOSPHATASE 105 U/L (46-116); ASPARTATE AMINOTRANSFERASE 54 U/L (15-37); BILIRUBIN,TOTAL 0.5 mg/dL (0.2-1.0); CALCIUM, SERUM 9.1 mg/dL (8.5-10.1); CARBON DIOXIDE 27 mmol/L (21-32); CHLORIDE 98 mmol/L (98-107); CREATININE 1.2 mg/dL (0.6-1.3); GLUCOSE 143 mg/dL (74-106); POTASSIUM 2.9 mmol/L (3.5-5.1); SODIUM SERUM 134 mmol/L (136-145); TOTAL PROTEIN, SERUM 6.4 g/dL (6.4-8.2); UREA NITROGEN, BLOOD 39 mg/dL (7-18)
--- NOTE | 2018-10-18 06:59 | NUR ---
SHOT CORE DRILL OPERATOR HELPER NOTE PT REMAINED STABLE DURING SHIFT. NO ACUTE DISTRESS NOTED. REMAINS INTUBATED AND ON VENTILATOR. SUCTIONED NEEDED. REPOSITIONED Q2H. RELAYED DRITICAL LAB POTASSIUM 2.9 TO STOCK COUNTER WITH ORDERS TO GIVE 60 MEQ PACKET VIA GT. ORDERS NOTED AND CARRIED OUT. WILL ENDORSE TO NEXT SHIFT FOR CONTINUITY OF CARE.
[2018-10-18] MEDS ORDERED: POTASSIUM CHLORIDE 20 MEQ POWDER PACKET GT ONE (07:00)
--- NOTE | 2018-10-18 07:05 | NUR ---
RN NOTES RECEIVED PT ON BED, INTUBATED ,ETT 7.5, 25 AT LIP, ON MECHANICAL VENTILATION. TOLERATING CURRENT VENT SETTING WELL, AC MODE: RATE 16, TV 500, FIO2 35% AND A PEEP OF 5. ON TELE ST HR IN 100'S, [place] DRINING TO GRAVITY, RIGHT UPPER ARM PICC SITE, CLEAN ,DRY AND INTACT. NO REDNESS OR SIGNS OF INFILTRATION NOTED. GT CLAMPED ,PT IS NPO, LEVO AT 23 MCG/MIN AND DIPRIVAN AT 15 MCG/KG/MIN RUNNING VIA R UPPER ARM PICC LINE , BED LOCKED AND IN LOWEST POSITION, SIDE RAILS UP X3, CALL LIGHT WITHIN EASY REACH, WILL CONTINUE TO MONITOR
[2018-10-18] MEDS: ACETYLCYSTEINE 10% SOLN 400 MG/4 ML VIAL NEB SCH ×2 (07:47→15:30)
[2018-10-18] MEDS: POTASSIUM CHLORIDE 20 MEQ POWDER PACKET NG SCH ×4 (08:18→11:27)
[2018-10-18] MEDS: HYDROCORTISONE SOD SUCCINATE 100 MG/2 ML VIAL IV SCH ×2 (08:20→12:01)
[2018-10-18] MEDS: PROSOURCE / PROSTAT (PYXIS) 30 ML UDC GT SCH (08:21)
[2018-10-18] MEDS: NEOMY SULF/BACITRAC ZN/POLY 15 GM TUBE TP SCH (08:22)
[2018-10-18] MEDS: HYDROGEL DRESSING 90 GM TUBE TP SCH (08:22)
[2018-10-18] MEDS: Z GUARD REMEDY 2 OZ OINT TP SCH (08:22)
[2018-10-18] MEDS ORDERED: VANCOMYCIN 0.75 GM in IV D5W 250 ML IV SCH (09:00)
[2018-10-18] MEDS ORDERED: LORAZEPAM INJ 2 MG/ML VIAL IVP PRN (10:00)
--- NOTE | 2018-10-18 10:00 | NUR ---
RN NOTES DR VELÁZQUEZ AND LISSETT AT THE BEDSIDE, DISCUSSING THE CASE WITH FAMILY . FAMILY WISH TO PROCEED WITH COMFORT CARE AND EXTUBATION . ORDER RECEIVED FROM DR VELÁZQUEZ FOR MORPHINE DRIP AND ATIVAN FOR COMFORT CARE. CONTINUE TO MONITOR .
[2018-10-18] MEDS: NOREPINEPHRINE 16 MG in IV D5W 500 ML IV PRN (10:43)
--- NOTE | 2018-10-18 12:00 | NUR ---
RN NOTES MORPHINE OUTSOLE CEMENTER MACHINE STARTED AT 5MG/HR PER MD ORDER FOR COMFORT CARE , SUPPORTIVE FAMILY AT THE BEDSIDE, CONTINUE TO MONITOR
--- NOTE | 2018-10-18 13:20 | NUR ---
RN NOTES PT TERMINALLY EXTUBATED AT THIS TIME, ON 5 MG/HR MORPHINE GTT, ORAL AND NASAL SUCTIONING DONE, O2 SAT IN 90'S AT THIS TIME, PT APPEARS COMFORTABLE . CONTINUE TO MONITOR
--- NOTE | 2018-10-18 13:25 | NUR ---
RN NOTES FAMILY AT THE BEDSIDE, CONTINUE TO GIVE EMOTIONAL SUPPORT TO FAMILY AND MONITOR PT FOR COMFORT CARE . MORPHINE GTT INCREASED TO 7MG/HR FOR COMFORT CARE AND MD ORDER . CONTINUE TO MONITOR.
--- NOTE | 2018-10-18 14:00 | NUR ---
RN NOTES MORPHINE GTT INCREASED TO 9MG/HR , PT IS SLIGHTLY RESTLESS, CONTINUE TO MONITOR AND PROVIDE COMFORT CARE .
--- NOTE | 2018-10-18 14:20 | NUR ---
RN NOTES PT TRANSFERRED TO ROOM 206-1, MEDSURGE STATUS , REPORT GIVEN TO AMERICO ANAYA FOR CONTINUITY OF COMFORT CARE.
--- NOTE | 2018-10-18 14:30 | NUR ---
MS ENGINEERING WRITER FROM ICU NOTES RECEIVED PT ON BED,EXTUBATED AND ADMINISTERED O2 AT 4L/MIN VIA NC. MCNAMARA CATH DRAINING YELLOW URINE TO GRAVITY, RIGHT UPPER ARM PICC SITE, CLEAN ,DRY AND INTACT. NO REDNESS OR SIGNS OF INFILTRATION NOTED. GT CLAMPED ,PT ON NPO, WITH MORPHINE DRIP 9 MG/HR INFUSING TO RT UPPER ARM PICC LINE , BED LOCKED AND IN LOWEST POSITION, SIDE RAILS UP X3, FAMILY AT BEDSIDE. EMOTIONAL SUPPORT AND ACTIVE LISTENING PROVIDED.SUCTIONED SECRETIONS NEEDED. ORAL CARE RENDERED.CALL LIGHT WITHIN EASY REACH,
--- NOTE | 2018-10-18 14:40 | NUR ---
PT HAS NO S/S OF PAIN OR DISTRESS.HOB ELEVATED. WITH GURGLING SOUND IN HIS THROAT INSPITE OF FREQUENT DEEP SUCTIONING. NO GRIMACING OR MOANING NOTED.WILL MONITOR.
--- NOTE | 2018-10-18 16:06 | NUR ---
PT'S FAMILY REFUSED THE BREATHING TX AND IV ATB TO BE ADMINISTERED SAYING IT DOESN'T HELP THE PT. INFORMED DR KANDY GALEANA WITH ORDERS MADE AND CARRIED OUT. PT'S SKIN IS COOL AND CLAMMY.FAMILY TEACHING ABOUT THE END STAGE DYING PROCESS GIVEN. EMOTIONAL SUPPORT GIVEN TO THE FAMILY.
--- NOTE | 2018-10-18 16:45 | NUR ---
FAMILY REFUSED TO HAVE THE PT BE TURNED OR REPOSITIONED.EXPLAINED THE BENEFITS/RISKS OF NOT BEING TURNED EVEN WITH GENTLE HANDLING-FAMILY INSISTS TO REFUSE.
--- NOTE | 2018-10-18 17:09 | NUR ---
PT'S BP IS DROPPING TO 60/34 HR 98 RR 28 T 97.8 O2 SAt 97% with O2 at 4l/min via NC. PT'S IS MAKING MORTUARY ARRANGEMENTS.SON,HERI STATED THAT PT WANTS [employer] BUT DOESN'T KNOW ANY MORTUARY OF CHOICE YET.PT'S WILL DO THE MORTUARY ARRANGEMENTS. PT'S SONHERI STAYED AT BEDSIDE.
--- NOTE | 2018-10-18 18:42 | NUR ---
KL,PT'S DAUGHTER IN LAW MADE MORTUARY ARRANGEMENTS WITH [facility] IN [facility] IN [address], [place] . PT'S SON,HERI WANTS TO BE CALLED TO COME OVER WHEN PT PASS AWAY BEFORE MORTUARY ARRIVES.
--- NOTE | 2018-10-18 18:46 | NUR ---
PT COMFORTABLY SLEEPING WITH MILD GURGLING SOUND IN HIS THROAT BUT NO SOB NOTED.RR:20.NO FACIAL GRIMACING,MOANING OR S/S OF DISTRESS NOTED.WITH ONGOING MORPHINE DRIP OF 9 MG/HR INFUSING WELL. WILL CONTINUE TO MONITOR. SON,HERI AT BEDSIDE. CALL LIGHT PLACED WITHIN REACH.
--- NOTE | 2018-10-18 19:30 | NUR ---
RN OPENING NOTES PT RECEIVED WITH SONHERI AT BEDSIDE. ON 4L O2 VIA NC, BREATHING EVEN AND UNLABORED. IN NO ACUTE RESPIRATORY DISTRESS. RR 12/MIN. SUCTIONING PROVIDED WITH DAY SHIFT RN. PT IS ON MORPHINE DRIP, 9MG/HR TO FOSTER MIDLINE. IV TO LEFT WRIST PATENT AND INTACT. GT CLAMPED. MCNAMARA IN PLACE AND DRAINING TO GRAVITY. NPO STATUS. HOB ELEVATED. EMOTIONAL SUPPORT PROVIDED. NO NEEDS EXPRESSED FROM HERI AT THIS TIME. BED IN LOW/LOCKED POSITION WITH CALL LIGHT IN REACH. BILAT. UPPER SIDE RAILS IN PLACE. WILL CONTINUE TO MONITOR CLOSELY
--- NOTE | 2018-10-18 20:35 | NUR ---
RN NOTES SON HERI REMAINS AT BEDSIDE. PT NO LONGER BREATHING. NO CAROTID PULSES PALPABLE. PUPILS NOT REACTIVE TO LIGHT. NO APICAL PULSE NOTED, UNABLE TO TAKE VITAL SIGNS. TIME OF 2034 WITH [facility].
--- NOTE | 2018-10-18 22:13 | NUR ---
RN NOTES FAMILY ARRIVED TO PT'S BEDSIDE, EMOTIONAL SUPPORT PROVIDED. 2042- NURSING NURSES' REGISTRY DIRECTOR AARON CONNELL AWARE OF PT'S TIME OF 2054- NOTIFIED HOME APPLIANCE TECH DR. RAFIQ DINERO, KANDY LISSETT WILL BE THE PHYSICIAN SIGNING CERTIFICATE 2055- [facility] CALLED. SPOKE TO SELINA. CASE # [id number] 2100- [facility] CREDENTIALING MANAGER NOTIFIED 2144- FABIANA Salas FROM ADMITTING NOTIFIED. RECORD OF COMPLETED AND SIGNED BY HERI KAYE (SON) MORTUARY OLEAN CALLED AT 2144. SPOKE TO KEVIN [address] [id number]. PHONE # [phone] ETA 1.5 - 2HRS FAMILY AWARE. DTR IN LAW AM[place]KA SPOKE TO KEVIN AND FINAL INFORMATION/ARRANGEMENTS MADE.
--- NOTE | 2018-10-18 22:28 | NUR ---
RN NOTES KAT CALLED FROM [facility] FOR ADDITIONAL INFORMATION REGARDING PT. PT IS NOT A CANDIDATE FOR [employer]. KAT PROVIDED A NEW REFERRAL NUMBER = [id number]
--- NOTE | 2018-10-18 23:01 | NUR ---
CHAVA Carrion FROM MORTUARY CAME TO GENERAL ACCOUNTING CLERK PT. TAGS ON TOE AND OUTSIDE OF THE BODY BAG. NO BELONGINGS. WRIST BAND REMAINS IN PLACE. MCNAMARA AND IV/PICC LINE REMOVED. RECORD OF SIGNED AND WITNESS BY JACLYN WORRELL. PT LEFT UNIT AND ESCORTED BY SECURITY.
[2018-10-18] MEDS ORDERED: KEY,NONCONTROL,TO KEEP IN PYXI 1 EA MC ONE (23:10)
--- NOTE | 2018-10-18 23:20 | NUR ---
MORPHINE WASTED WITH RN, GM 200ML WASTED. DOCUMENTED AND SIGNED ON MACHINE OPERATOR FORM. KEYS RETURNED TO СВЕТЛАНА
[2018-10-19] MEDS ORDERED: VANCOMYCIN 0.75 GM in IV D5W 250 ML IV SCH (03:00)
== END 2018-10-18 20:35 | disposition expired | DRG 871 ==
LOC: ER 02:22 → TELE 06:17 → ICU 09:02 → MEDSG2 10-18 14:38
PROVIDERS: ADMIT Internal Medicine Nephrology; ATTEND Internal Medicine Nephrology
PROC: 02HV33Z Insertion of Infusion Device into Superior Vena Cava, Percutaneous Approach (ICD-10-PCS; 2018-10-16)
PROC: B548ZZA Ultrasonography of Superior Vena Cava, Guidance (ICD-10-PCS; 2018-10-16)
PROC: 5A1945Z Respiratory Ventilation, 24-96 Consecutive Hours (ICD-10-PCS; principal; 2018-10-17)
PROC: 0BH17EZ Insertion of Endotracheal Airway into Trachea, Via Natural or Artificial Opening (ICD-10-PCS; 2018-10-17)
PROC: 5A12012 Performance of Cardiac Output, Single, Manual (ICD-10-PCS; 2018-10-17)
DX: A41.9 Sepsis, unspecified organism (principal); L89.153 Pressure ulcer of sacral region, stage 3; Z66 Do not resuscitate; Z51.5 Encounter for palliative care; J96.01 Acute respiratory failure with hypoxia; R53.2 Functional quadriplegia; R65.21 Severe sepsis with septic shock; I21.A1 Myocardial infarction type 2; J69.0 Pneumonitis due to inhalation of food and vomit; I13.0 Hypertensive heart and chronic kidney disease with heart failure and stage 1 through stage 4 chronic kidney disease, or unspecified chronic kidney disease; N39.0 Urinary tract infection, site not specified; G91.2 (Idiopathic) normal pressure hydrocephalus; I50.30 Unspecified diastolic (congestive) heart failure; N17.9 Acute kidney failure, unspecified; E78.5 Hyperlipidemia, unspecified; F02.80 Dementia in other diseases classified elsewhere, unspecified severity, without behavioral disturbance, psychotic disturbance, mood disturbance, and anxiety; G20 Parkinson's disease; R13.10 Dysphagia, unspecified; I46.9 Cardiac arrest, cause unspecified; Z93.1 Gastrostomy status; E03.9 Hypothyroidism, unspecified; K21.9 Gastro-esophageal reflux disease without esophagitis; Z87.891 Personal history of nicotine dependence; N18.9 Chronic kidney disease, unspecified; L89.620 Pressure ulcer of left heel, unstageable; L89.610 Pressure ulcer of right heel, unstageable; R62.7 Adult failure to thrive; Z68.22 Body mass index [BMI] 22.0-22.9, adult; L89.220 Pressure ulcer of left hip, unstageable; I48.91 Unspecified atrial fibrillation; D64.9 Anemia, unspecified; C44.40 Unspecified malignant neoplasm of skin of scalp and neck; I35.0 Nonrheumatic aortic (valve) stenosis; E87.6 Hypokalemia
CPT/HCPCS: 31720; 36415; 36569; 36600; 71045-TC; 80048-TC; 80053-TC; 80076-TC; 80202-TC; 81000-TC; 82533; 82728-TC; 82803-TC; 83540-TC; 83605-TC; 83735-TC; 83880; 84100-TC; 84443-TC; 84484-TC; 85025-TC; 85378-TC; 85730-TC; 87040-TC; 87070-TC; 87081-TC; 87086-TC; 87186-TC; 93307-TC; 94003-TC; 94760-TC; 94799-TC; A4217; A4624; A6248; A6253; C1751; G0378; J0171; J0282; J0696; J1644; J1720; J1940; J2060; J2185; J2274; J2543; J3370; J3490; J7030; J7040; J7050; J7060